=== PATIENT | female | born 1950 | race Caucasian/White ===

== ENCOUNTER → 2016-12-12 | Outpatient (CLI) | payer BC ==
--- NOTE | 2016-12-12 20:47 | PN ---
DATE OF SERVICE: 12/12/2016 This patient is a 66-year-old lady who has been followed in the sleep center for treatment of obstructive sleep apnea-hypopnea syndrome. Patient continues to use her CPAP equipment every night for the whole night. I checked her CPAP unit. She is using it 30 out of 30 nights. CPAP pressure is 7 cm of water. According to the patient and her family, no snoring while she is using her machine. Her weight has increased from 194 pounds to 215 pounds, but again no snoring, no sleepiness during the day. [place] Sleepiness Scale is 5. MEDICATIONS: 1. Lotrel. 2. Pravastatin. 3. Metformin. 4. Meloxicam. 5. Tramadol. 6. Baby aspirin. PHYSICAL EXAMINATION: Patient in no distress. VITAL SIGNS: BP 120/69, HR 78, RR 16. Height 5 feet 7 inches. Weight 215. BMI 33.6. Neck 16 inches in circumference. Temperature 98.6. Oxygen saturation at room air 97%. HEENT: PERRLA, EOMI. Evaluation of oropharynx showed tongue protrudes midline; extremely low position of soft palate. NECK: Supple. No JVD. Thyroid is not palpable. LUNGS: Clear to percussion and to auscultation. Good air exchange. No wheezing or rhonchi. HEART: S1, S2 regular. No murmurs, gallops or rubs. ABDOMEN: Soft and nontender. Bowel sounds are present. No organomegaly appreciated. EXTREMITIES: No clubbing or cyanosis. LIBRARIAN HEAD: Awake, alert, and oriented x3. Cranial nerves 2 to 7 intact. There is no fasciculation or atrophy noted. No focal deficits observed. IMPRESSION: 1. Obstructive sleep apnea-hypopnea syndrome, under control with CPAP at the pressure of 7 cm of water. Patient demonstrated 100% compliance with treatment, benefitting from treatment. 2. Status post left shoulder replacement. 3. Hypertension. 4. Diabetes mellitus. 5. Hyperlipidemia. 6. Mild obesity; body mass index of 33.6. PLAN: 1. Patient will lose weight. 2. Continue to use CPAP equipment every night. 3. Sleep hygiene with regular time in bed for at least 8 hours. 4. No driving if feeling any sleepiness. 5. Prescription for all necessary CPAP supplies, including mask, tube, filters. Thank you very much for allowing me to participate in the management of your patient. Sincerely, Irwin Doe MD, PhD, FAASM. Diplomat of [place] [employer], Sleep Medicine Board by [place] [employer], [place] [employer]
== END | disposition home or self-care (01) ==
LOC: SLEEP 13:39
PROVIDERS: ATTEND Internal Medicine
DX: G47.33 Obstructive sleep apnea (adult) (pediatric) (principal); I10 Essential (primary) hypertension; E11.9 Type 2 diabetes mellitus without complications; Z79.84 Long term (current) use of oral hypoglycemic drugs; E66.9 Obesity, unspecified; Z68.36 Body mass index [BMI] 36.0-36.9, adult; E78.5 Hyperlipidemia, unspecified; Z79.899 Other long term (current) drug therapy

== ENCOUNTER → 2016-12-12 | Outpatient (CLI) | payer BC | END | disposition home or self-care (01) | LOC: LABPAT 10:48 | PROVIDERS: ATTEND Orthopaedic Surgery | DX: Z01.818 Encounter for other preprocedural examination (principal); M16.11 Unilateral primary osteoarthritis, right hip | CPT/HCPCS: 86850; 86900; 86901; 87070 ==

== ENCOUNTER 2016-12-23 07:40 | Inpatient (IN) | payer BC ==
[2016-12-18 15:15] VITALS: BMI 31.3
--- NOTE | 2016-12-22 17:55 | HP ---
DATE OF ADMISSION: Niharika Cruz a 66-year-old patient seen with symptomatic right hip osteoarthritis. After having treatment options discussed, she elected to proceed with direct anterior right total hip arthroplasty. Consent was obtained. Medical clearance by Dr. Hector Eng. Past medical history is [id number] diabetes, hyperlipidemia, hypertension, osteoarthritis. PAST SURGICAL HISTORY: Carpal tunnel release, right total knee arthroplasty, tonsillectomy, wrist surgery. Daily medications: 1. Aspirin. 2. Lotrel. 3. Metformin. 4. Pravachol. 5. Tramadol. ALLERGIES: CODEINE AND NICKEL. SOCIAL HISTORY: Patient denies current tobacco use. Physical evaluation of the right hip: There is limited range of motion with significant pain, positive hip impingement sign. Straight-leg raise is negative. There is diffuse weakness about the hip girdle. Distal neurovascular exam is intact. Radiographs of the right hip reveal severe osteoarthritis. IMPRESSION: Right hip osteoarthritis. PLAN: Direct anterior right total hip arthroplasty.
[~2016-12-23 07:40] MED LIST: ACETAMINOPHEN TAB 500 MG TAB PO ONE; DEXAMETHASONE SOD PHOSPHATE 10 MG/ML 1 ML VIAL IV ONE; HYDROmorphone 1 MG/ML 1 ML SYRINGE IVP PRN; MELOXICAM 7.5 MG TAB PO ONE; MIDAZOLAM 2 MG/2 ML VIAL IV PRN; ONDANSETRON 4 MG/2 ML VIAL IVP ONE; SCOPOLAMINE 1.5MG/72HR PATCH TRANSDERM ONE; TRANEXAMIC ACID 1,000 MG in SODIUM CHLORIDE 0.9% 100 ML IVPB ONE; ceFAZolin 2 GM in SODIUM CHLORIDE 0.9% 100 ML IVPB ONE
[2016-12-23 08:08] VITALS: RESP 16
[2016-12-23] MEDS ORDERED: LIDOCAINE 1% 20 ML VIAL (10MG/ML) FOR IV START INTRADERMA ONE (08:20)
[2016-12-23 08:23] LABS: Glucose,Whole Blood 138 mg/dL (75-99)
[2016-12-23] MEDS: LACTATED RINGERS 1,000 ML IV SCH ×3 (08:31→14:15)
[2016-12-23] MEDS ORDERED: PROPOFOL 10 MG/ML 20 ML VIAL IV ONE (10:25)
[2016-12-23] MEDS ORDERED: fentaNYL (PF) 50 MCG/ML 2 ML AMP ONE (10:25)
[2016-12-23] MEDS ORDERED: TRANEXAMIC ACID 1,000 MG/10 ML VIAL ONE (10:25)
[2016-12-23] MEDS ORDERED: SODIUM CHLORIDE 0.9% 100 ML BAG ONE (10:25)
[2016-12-23] MEDS ORDERED: MIDAZOLAM 2 MG/2 ML VIAL ONE (10:25)
[2016-12-23] MEDS: ROPIVACAINE 246.25 MG, EPINEPHrine 0.5 MG, KETOROLAC 30 MG, cloNIDine HCL/PF 80 MCG, WA... MISCELLANE ONE ×10 (11:01→12:24)
[2016-12-23] MEDS ORDERED: ceFAZolin 3,000 MG in SODIUM CHLORIDE 0.9% IRRIGATIO 3,000 ML IRRIGATION ONE (11:12)
[2016-12-23] MEDS ORDERED: LACTATED RINGERS 1,000 ML IV ONE (11:21)
[2016-12-23] MEDS ORDERED: HYDROcodone/APAP 7.5-325MG 1 EACH TAB PO PRN (12:28)
[2016-12-23] MEDS ORDERED: hydrOXYzine PAMOATE 25 MG CAP PO PRN (12:28)
[2016-12-23] MEDS ORDERED: HYDROmorphone 1 MG/ML 1 ML SYRINGE IVP PRN ×3 (12:28)
[2016-12-23] MEDS ORDERED: ONDANSETRON 4 MG/2 ML VIAL IVP PRN (12:28)
[2016-12-23] MEDS ORDERED: TEMAZEPAM 15 MG CAP PO PRN (12:28)
[2016-12-23] MEDS ORDERED: NALOXONE 0.4 MG/ML 1 ML VIAL IV PRN (12:28)
--- NOTE | 2016-12-23 12:28 | P.OP ---
Date of Procedure: 12/23/16 Preoperative Diagnosis: Right hip osteoarthritis Postoperative Diagnosis: Right hip osteoarthritis Procedure(s) Performed: Direct anterior right total hip arthroplasty Implants: 1. Depuy Corail size 12 press-fit with collar press-fit femoral component 2. Depuy pinnacle 54 mm press-fit acetabular shell 3. Depuy pinnacle polyethylene acetabular liner 54 mm OD 36 mm ID 4. Biolox ceramic femoral head 36 mm +1.5 Anesthesia: local, spinal Surgeon: Brett Garcia Radiologic Technologist #1: Mason Salazar Estimated Blood Loss (ml): 400 Pathology: other (Femoral head) Condition: stable Disposition: PACU Indications for Procedure: 66-year-old patient seen with symptomatic right hip osteoarthritis. After having treatment options discussed, she elected to proceed with total hip arthroplasty. Operative Findings: See description of procedure Description of Procedure: The patient was taken to the operative suite. Patient underwent a spinal anesthetic by the department of anesthesia. Patient was then transferred to the [place] table. Patient was given preoperative IV antibiotics and TXA. Both lower extremities were placed in standard leg spars. The hip was then prepped and draped in the normal sterile orthopedic fashion. A standard anterior incision was made beginning 3 cm lateral and 1 cm distal to the ASIS extending 10 cm. Dissection was then carried down through the subcutaneous soft tissues down to the fascia overlying the tensor fascia erlin. An incision was now made through the fascia. Careful dissection was taken down exposing the tensor fascia erlin muscle. A Cobra retractor was now placed along the medial femoral neck and a second one along the lateral femoral neck. The venous circumflex vessels were now identified, cauterized and clipped. We identified the anterior hip capsule. An incision was made through the hip capsule along the lateral border. Tag sutures were then placed along the anterior capsule and lateral capsule. We then performed a capsulotomy. Retractors were now placed around the femoral neck itself. A Cobra retractor was now placed along the anterior acetabulum. Good exposure was now noted of the femoral head/neck complex. Residual labrum was debrided out. We placed the extremity into 3 turns of fine traction. We were then able to introduce a skid in between the femoral head and acetabulum. A placed a awl into the femoral head. We took 2 turns of traction off the extremity. Rotation was now released. The femoral head was then dislocated without difficulty. Additional releasing was performed of the capsule. The head was then reduced. All traction was released. A femoral neck cut was now made with a sagittal saw. It was completed with an osteotome at the lateral neck area. The femoral head was now removed without difficulty. There was advanced osteoarthritis of both the femoral head and acetabulum. The extremity was now rotated to 60 of external rotation. It was locked in position. Residual labrum was now debrided out. Serial reaming was performed of the acetabulum. Once we reached the appropriate size and a trial was position and fit nicely. The appropriate size was now chosen opened and made available. The wound was irrigated with pulse lavage mechanical irrigation. It was introduced into the acetabulum without difficulty. The C-arm/fluoroscopy was now brought into the operative field. We made sure we had a true AP pelvic view. We now under direct C-arm/ fluoroscopy introduced into the acetabular component with appropriate version and inclination. It was well seated and stable. The C-arm was pulled back. An appropriate liner was introduced and clicked into position. It was felt to be stable. At this point retractors were removed. The extremity was now placed into 125 external rotation with no traction. The leg was now dropped to the ground and adducted. Appropriate retractors were now positioned along the proximal femur. We also placed our femoral look into position. Additional capsular releasing was performed to gain access to the proximal femur. We now used a box osteotome. A canal finder was now utilized. Serial broaching was now performed until we reached the appropriate size with good overall rotational stability. Appropriate calcar planing was performed. A trial head/ neck was placed into position. The hip was now reduced. The C-arm/fluoroscopy was brought back into the operative field. A spot film was obtained of the nonoperative hip. A spot film was obtained of the trial components. Overlays were performed, we noted good overall alignment and positioning for determining leg length. The C-arm/fluoroscopy was pulled back. Retractors were repositioned and the hip was dislocated. The leg was again taken down to the ground and adducted. Appropriate retractors were repositioned as well as the femoral hook. All trial components were removed. The femoral implant was opened along with the femoral head. The wound was irrigated with pulse lavage mechanical irrigation. The deep soft tissues were infiltrated local analgesic. The femoral implant was introduced with good purchase and fixation noted. The femoral head was introduced with good positioning and fixation noted. Retractors were now removed. The hip was now reduced. There appeared be good positioning of the hip. As was confirmed via fluoroscopy and a spot film was obtained to document that. The second gram of TXA was given. Bipolar cautery had been utilized intermittently through the procedure for hemostasis. The wound was irrigated copiously with pulse lavage mechanical irrigation. The superficial soft tissues were infiltrated local analgesic. The fascia was repaired with Vicryl suture. The subcutaneous soft tissues were repaired in layers with Vicryl suture. The skin was approximated with pernio/Dermabond. Sterile dressings were applied. Patient was then awakened, transferred to a bed and taken to recovery in stable condition. Davi RUTLEDGE assisted with the procedure.
--- NOTE | 2016-12-23 12:34 | FL ---
Fluoroscopy HISTORY: Hip replacement 13 seconds fluoroscopy time supplied to the referring clinician. 1 intraoperative C-arm image docume nts the procedure. See dictated report from orthopedic surgery.
--- NOTE | 2016-12-23 12:35 | XR ---
Limited right hip HISTORY: Right hip placement Intraoperative C-arm image documents the procedure
[2016-12-23 13:12] LABS: Glucose,Whole Blood 151 mg/dL (75-99)
[2016-12-23] MEDS: traMADol 50 MG TAB PO SCH ×3 (14:15→23:29)
[2016-12-23] MEDS: INSULIN LISPRO (humaLOG) 300 UNIT/3 ML VIAL SQ SCH ×2 (18:05→21:27)
[2016-12-23 18:06] LABS: Glucose,Whole Blood 178 mg/dL (75-99)
[2016-12-23] MEDS: ceFAZolin 2 GM in SODIUM CHLORIDE 0.9% 100 ML IVPB SCH ×2 (18:06→23:34)
[2016-12-23] MEDS: HYDROcodone/APAP 7.5-325MG 1 EACH TAB PO PRN (20:26)
[2016-12-23] MEDS ORDERED: PRAVASTATIN SODIUM 20 MG TAB PO SCH (21:00)
[2016-12-23] MEDS ORDERED: SENNOSIDES-DOCUSATE SODIUM 1 EACH TAB PO SCH (21:00)
[2016-12-23 21:28] LABS: Glucose,Whole Blood 123 mg/dL (75-99)
--- NOTE | 2016-12-23 22:09 | CONS ---
DATE OF CONSULTATION: 12/22/2016. REASON FOR CONSULTATION: Medical management requested by Dr. Garcia. CONSULTATION: This is a pleasant 66 -year-old female patient who has undergone a right total hip arthroplasty. Postoperative pain is controlled. No nausea, vomiting. Chronic stable medical conditions include diabetes, hypertension, hyperlipidemia, silent IN, arthritis in other joints, sleep apnea, uses CPAP machine. The patient sitting on bed, comfortable. REVIEW OF SYSTEMS: CONSTITUTIONAL: Tired. HEENT: None. RESPIRATORY: None. CARDIOVASCULAR: None. GASTROINTESTINAL: None. GENITOURINARY: None. MUSCULOSKELETAL: Arthritic in multiple joints. Dermatological: None. HEMATOLOGICAL: None. LYMPHATIC: None. PSYCHIATRY: None. NEUROLOGICAL: None. PAST HISTORY: Diabetes mellitus, type II, hypertension, hyperlipidemia, silent IN, osteoarthritis, obstructive sleep apnea, uses CPAP machine. PAST SURGICAL HISTORY: Cardiac catheterization, joint replacement, tonsillectomy, right total knee and bilateral feet surgery, carpal tunnel bilateral, lump removed from left wrist, right hip arthroscopy. SOCIAL HISTORY: Smoked 1 to 3 packs a day for 12 years.; Stopped in 1978. . Family history of coronary disease, hypertension. HOME MEDICATIONS: 1. Ultram ( ) q.4 p.r.n. 2. Glucophage 500 mg p.o. daily. 3. Lotrel 1 tablet p.o. daily. 4. Pravachol 20 mg q.h.s. 5. Fish oil 1000 mg capsule p.o. daily. 6. Multivitamin half tablet p.o. b.i.d. 7. Mobic 7.5 p.o. daily. 8. Vitamin D3 2000 units Friday, Friday and Friday, 4000 units Friday, and Friday. 9. Aspirin 81 mg p.o. daily. ALLERGIES: CODEINE AND NICKEL. On examination, temperature 98.3, pulse 75, respiration 16, blood pressure 105/72. Pulse ox 96% on oxygen. GENERAL APPEARANCE: Well built, BMI of 31.3, lying in bed, comfortable, awake. EYES: Pupils equal. Conjunctivae normal. HEENT: Oral cavity normal. NECK: JVD not raised. Mass not palpable. RESPIRATORY: Effort normal. LUNGS: Fair air entry. CARDIOVASCULAR: First and second sounds normal. No edema. ABDOMEN: Soft, nontender. Liver and spleen not palpable. LYMPHATIC: No lymph nodes palpable in the neck or axillae. PSYCHIATRY: Alert and oriented x3. Mood and affect normal. NEUROLOGICAL: Pupils equal. Cranial nerves grossly intact. Power and sensation grossly intact. EXTREMITIES: Right hip in a dressing. INVESTIGATIONS: Accu-Cheks are noted. ASSESSMENT: 1. Right total hip arthroplasty. 2. Primary osteoarthritis of multiple joints, bilateral. 3. Type 2 diabetes mellitus, on oral hypoglycemics. 4. Essential hypertension. 5. Hyperlipidemia. 6. Coronary artery disease with prior history of silent myocardial infarction. 7. Obstructive sleep apnea, uses CPAP machine. 8. Obesity, body mass index of 31.3. PLAN: Patient's home medications will be resumed. DVT prophylaxis, been getting Lovenox per Dr. Garcia. Pain is controlled. Accu-Cheks will be followed. The patient uses CPAP machine. Patient to follow up with Dr. Eng upon discharge. Thank you, Dr. Garcia.
[2016-12-24] MEDS: LACTATED RINGERS 1,000 ML IV SCH ×3 (00:30→15:58)
[2016-12-24] MEDS: HYDROcodone/APAP 7.5-325MG 1 EACH TAB PO PRN ×2 (03:52→09:02)
[2016-12-24 07:19] LABS: Glucose,Whole Blood 108 mg/dL (75-99)
[2016-12-24 07:28] VITALS: BP 114/74; PULSE 69; TEMP 97.6
[2016-12-24 07:42] LABS: Basophils % (A) 0 %; CHCM 32.1; Eosinophils % (A) 0 %; HCT 34.3 % (34.0-46.0); HDW 2.02; HGB 11.3 gm/dL (11.4-16.0); Luc # (Auto) 0.16; Luc % (Auto) 2; Lymphocytes # (A) 1.5 k/uL (1.0-4.8); Lymphocytes % (A) 22 %; MCH 31.9 pg (25.0-35.0); MCHC 32.9 g/dL (31.0-37.0); MCV 96.9 fL (80.0-100.0); Mean Platelet Volume 7.1; Monocytes # (A) 0.7 k/uL (0-1.0); Monocytes % (A) 9 %; Neutrophils # (A) 4.7 k/uL (1.3-7.7); Neutrophils % (A) 66 %; RBC 3.53 m/uL (3.80-5.40); RDW 12.9 % (11.5-15.5); WBC 7.1 k/uL (3.8-10.6)
[2016-12-24] MEDS: INSULIN LISPRO (humaLOG) 300 UNIT/3 ML VIAL SQ SCH ×2 (08:24→14:32)
[2016-12-24] MEDS ORDERED: MELOXICAM 7.5 MG TAB PO SCH (09:00)
[2016-12-24] MEDS ORDERED: ASPIRIN 81 MG CHEW PO SCH (09:00)
[2016-12-24] MEDS ORDERED: FAMOTIDINE 20 MG TAB PO SCH (09:00)
[2016-12-24] MEDS ORDERED: amLODIPine 5 MG TAB PO SCH (09:00)
[2016-12-24] MEDS ORDERED: metFORMIN 500 MG TAB PO SCH (09:00)
[2016-12-24] MEDS ORDERED: LISINOPRIL 20 MG TAB PO SCH (09:00)
[2016-12-24] MEDS ORDERED: ENOXAPARIN 40 MG/0.4 ML SYRINGE SQ SCH (09:00)
[2016-12-24] MEDS: traMADol 50 MG TAB PO SCH ×2 (09:02→15:59)
[2016-12-24 11:08] LABS: Hemoglobin A1C 6.4 % (4.2-6.1)
[2016-12-24 11:32] LABS: Glucose,Whole Blood 118 mg/dL (75-99)
[2016-12-24] MEDS ORDERED: MULTIVITAMINS, THERA 1 EACH TAB PO SCH (12:00)
--- NOTE | 2016-12-24 12:04 | P.PN ---
Subjective Principal diagnosis: Status post right total hip arthroplasty Patient is seen today resting in her hospital chair, she appears comfortable. Her pain is well-controlled. She's ambulated well with therapy. She denies any headaches, lightheadedness, chest pain, shortness of breath, fever or chills. Objective - Vital Signs Vital signs: Vital Signs Temp 97.6 F 12/24/16 07:27 Pulse 69 12/24/16 07:27 Resp 16 12/24/16 07:27 BP 114/74 12/24/16 07:27 Pulse Ox 99 12/24/16 07:27 Intake & Output 12/23/16 12/24/16 12/24/16 18:59 06:59 18:59 Intake Total 5280 880 Output Total 675 900 350 Balance 4605 -20 -350 Weight 96.162 kg Intake: IV 4800 880 Lactated Ringers 1,000 ml 880 @ 80 mls/hr IV .[id number] Rx#:[id number] Oral 480 Output: Urine 275 900 350 Uretheral ([place]) 900 200 Estimated Blood Loss 400 Other: Voiding Method Indwelling Catheter Indwelling Catheter # Voids 1 - Exam Right lower extremity: Incisions clean, dry, and intact. Minimal soft tissue swelling and ecchymosis present in the hip region. Calf is soft, no tenderness with palpation. Plantar flexion, dorsiflexion, EHL, FHL are intact. Sensory exam to light touch throughout the extremities intact, cap refills less than 3 seconds. - Labs CBC & Chem 7: 12/24/16 06:44 Labs: Abnormal Lab Results - Last 24 Hours (Table) 12/23/16 12/23/16 12/23/16 Range/Units 13:09 18:04 21:22 RBC (3.80-5.40) m/uL Hgb (11.4-16.0) gm/dL POC Glucose (mg/dL) 151 H 178 H 123 H (75-99) mg/dL Hemoglobin A1c (4.2-6.1) % 12/24/16 12/24/16 12/24/16 Range/Units 06:44 06:44 07:16 RBC 3.53 L (3.80-5.40) m/uL Hgb 11.3 L (11.4-16.0) gm/dL POC Glucose (mg/dL) 108 H (75-99) mg/dL Hemoglobin A1c 6.4 H (4.2-6.1) % 12/24/16 Range/Units 11:29 RBC (3.80-5.40) m/uL Hgb (11.4-16.0) gm/dL POC Glucose (mg/dL) 118 H (75-99) mg/dL Hemoglobin A1c (4.2-6.1) % Assessment and Plan Plan: Assessment: 1. Postop day #1 status post right total hip arthroplasty Plan: 1. Pain control, continue use of oral medications 2. Wound care instructions were discussed with the patient 3. GI and DVT prophylaxis, patient will be discharged home on aspirin 325 mg twice a day 4. Medical recommendations 5. Home physical therapy and nursing after discharge 6. Discharge planning: Patient will be discharged home today Time with Patient: Less than 30
--- NOTE | 2016-12-24 12:07 | P.DS ---
Providers Date of admission: 12/23/16 07:40 Expected date of discharge: 12/24/16 Attending physician: Brett Garcia Consults: 12/23/16 12:28 Consult Physician Routine Consulting Provider: Rick Marin Consult Reason/Comments: Medical management Do you want consulting provider notified?: Yes Primary care physician: Portia Thierry [facility] Course: Date of admission: 12/23/2016 Date of discharge: 12/24/2016 Admission diagnosis: Status post right total hip arthroplasty Discharge diagnosis: Same Attending physician: Dr. Garcia Surgical procedures: Right total hip arthroplasty Brief history: Patient is a 66-year-old female with a history of progressive primary right hip osteoarthritis. At this point patient has failed conservative treatment measures and has opted to proceed with a elective right total hip arthroplasty. Hospital course: Details of patient's surgery can be found in operative report. Patient tolerated the procedure well and was subsequently transported to orthopedic floor. Patient's orthopeidc and medical care was provided daily. Patient had daily laboratory tests performed for evaluation of overall blood counts. Patient had daily physical therapy to include strengthening range of motion as well as education with walker ambulation. Patient was treated with Lovenox for their postoperative DVT prophylaxis during their inpatient stay. Patient was noted to have a relatively uneventful postoperative course. Patient reported satisfactory pain control with oral pain medications by postoperative day 0. Patient showed satisfactory progress with physical therapy. Patient moved steadily through the program and had no difficulty meeting the goals by postoperative day 1. Given patient's otherwise satisfactory course and having met physical therapy goals, plan is to discharge patient home on postoperative day 1. Discharge condition/disposition: Patient will be discharged home in stable condition. Discharge medications: Instructions are given on resumption of patient's normal daily medications per primary care recommendation, in addition patient will be prescribed [place] 7.5 mg/325 mg, Pepcid 20 mg, Colace 100 mg, aspirin 325 mg. Discharge instructions: 1. Wound care and infection precautions, keep incision dry and covered while showering, no lotions, creams, moisturizers. No soaking, tubs, pools, hottubs. Do not scrub over the incision. 2. Weight-bear as tolerated with walker / cane until follow-up. 3. Ice and elevate when necessary. Do not exceed 20 minutes per hour with ice pack. 4. Utilize compression sleeve until seen at first follow up appointment. 5. Visiting nursing care. 6. Home physical therapy. 7. Pain meds and anticoagulants per prescription. 8. Pain medication has potential to cause constipation. Increase oral fluid and fiber intake. Contact primary care provider if you have not had a bowel movement within 48 hours after discharge 9. No anti-inflammatory medication until discussed at first post operative visit, this including Motrin, Aleve, Mobic, Diclofenac. 10. Follow up in office at 2 weeks postop with Davi Salazar PA-C 11. Follow up with your primary care doctor 7-10 days after discharge. 12. Contact [facility] with any questions, . Procedures: Right total hip arthroplasty Patient Condition at Discharge: Good Plan - Discharge Summary New Discharge Prescriptions: New Aspirin 325 mg PO BID #60 tab Docusate [Colace] 100 mg PO DAILY #30 capsule Famotidine [Pepcid] 20 mg PO DAILY #30 tablet HYDROcodone/APAP 7.5-325MG [[place] 7.5] 1 - 2 each PO Q6HR PRN #60 tab PRN Reason: Pain No Action Cholecalciferol [Vitamin D3] 4,000 unit PO SUTUTHSA Cholecalciferol [Vitamin D3] 2,000 unit PO MOWEFR traMADol HCL [Ultram] 50 - 100 mg PO Q4HR PRN PRN Reason: Pain Multivitamins, Thera [Multivitamin (formulary)] 0.5 tab PO BID metFORMIN HCL [Glucophage] 500 mg PO DAILY Meloxicam [Mobic] 7.5 mg PO DAILY amLODIPine BESYLATE/BENAZEPRIL [Lotrel 5-20 mg Capsule] 1 tab PO DAILY Pravastatin Sodium [Pravachol] 20 mg PO HS Totz-3 Fatty Acids/Fish Oil [Fish Oil 1,000 mg Capsule] 1 cap PO DAILY Discharge Medication List Cholecalciferol [Vitamin D3] 2,000 unit PO MOWEFR 12/26/14 [History] Cholecalciferol [Vitamin D3] 4,000 unit PO SUTUTHSA 12/26/14 [History] Meloxicam [Mobic] 7.5 mg PO DAILY 12/26/14 [History] Multivitamins, Thera [Multivitamin (formulary)] 0.5 tab PO BID 12/26/14 [History ] Pravastatin Sodium [Pravachol] 20 mg PO HS 12/26/14 [History] amLODIPine BESYLATE/BENAZEPRIL [Lotrel 5-20 mg Capsule] 1 tab PO DAILY 12/26/14 [History] metFORMIN HCL [Glucophage] 500 mg PO DAILY 12/26/14 [History] traMADol HCL [Ultram] 50 - 100 mg PO Q4HR PRN 12/26/14 [History] Totz-3 Fatty Acids/Fish Oil [Fish Oil 1,000 mg Capsule] 1 cap PO DAILY [History] Aspirin 325 mg PO BID #60 tab 12/24/16 [Rx] Docusate [Colace] 100 mg PO DAILY #30 capsule 12/24/16 [Rx] Famotidine [Pepcid] 20 mg PO DAILY #30 tablet 12/24/16 [Rx] HYDROcodone/APAP 7.5-325MG [[place]anyon 7.5] 1 - 2 each PO Q6HR PRN #60 tab 12/24/16 [ Rx] Follow up Appointment(s)/Referral(s): Mason Salazar PAC [PHYSICIAN CURBER] - 2 Weeks Activity/Diet/Wound Care/Special Instructions: Orthopedic Discharge Instructions: 1. Wound care and infection precautions, keep incision dry and covered while showering, no lotions, creams, moisturizers. No soaking, pools, hot tubs. Do not scrub over incision. 2. Weight-bear as tolerated with walker / cane until follow-up. 3. Ice and elevate when necessary. Do not exceed 20 minutes per hour with ice pack. 4. Utilize compression sleeve until seen at first follow up appointment. 5. Visiting nursing care. 6. Home physical therapy. 7. Pain meds and anticoagulants per prescription. 8. Pain medication has potential to cause constipation. Increase oral fluid and fiber intake. Contact primary care provider if you have not had a bowel movement within 48 hours after discharge. 9. No anti-inflammatory medication until discussed at first post operative visit, this including Motrin, Aleve, Mobic, Diclofenac. 10. Follow up in office at 2 weeks postop with Davi Salazar PA-C 11. Follow up with your primary care doctor 7-10 days after discharge. 12. Contact [facility] with any questions, . Discharge Disposition: HOME WITH HOME HEALTH SERVICES
--- NOTE | 2016-12-24 16:55 | PN ---
DATE OF SERVICE: 12/24/2016 PRESENTING COMPLAINT: Right hip surgery, INTERVAL HISTORY: Patient is status post right hip surgery, doing well. Pain is controlled. No nausea, vomiting, tolerating a diet. Did work with therapy. Review of systems done for constitutional, cardiovascular, GI, pulmonary, musculoskeletal; relevant findings as above. No current medications are reviewed. On examination, temperature 97.6, pulse 59, respiratory rate 16, blood pressure 104/74, pulse ox 99% on room air. GENERAL APPEARANCE: Sitting up, comfortable. EYES: Pupils equal. Conjunctivae normal. NECK: JVD not raised. Mass not palpable. RESPIRATORY: Effort normal. LUNGS: Clear. CARDIOVASCULAR: First and second sounds normal. No edema. ABDOMEN: Soft, nontender. Liver and spleen not palpable. PSYCHIATRY: Alert and oriented x3. Mood and affect normal. INVESTIGATIONS: White count 7.1, hemoglobin 11.3. Accu-Cheks are noted. ASSESSMENT: 1. Right total hip arthroplasty. 2. Primary osteoarthritis in multiple joints, bilateral. 3. Diabetes mellitus, type 2, on oral hypoglycemic. 4. Essential hypertension. 5. Hyperlipidemia. 6. Coronary artery disease with prior history of silent myocardial infarction. 7. Obstructive sleep apnea, uses CPAP machine. 8. Obesity, body mass index 31.3. PLAN: Continue current medication and treatment plan. Care was discussed with the patient. Doing well.
== END 2016-12-24 15:50 | disposition home health service (06) | DRG 470 ==
LOC: 2ORMAIN 07:40 → 3SUR 12:42
PROVIDERS: ADMIT Orthopaedic Surgery; ATTEND Orthopaedic Surgery
PROC: 0SR904A Replacement of Right Hip Joint with Ceramic on Polyethylene Synthetic Substitute, Uncemented, Open Approach (ICD-10-PCS; principal; 2016-12-23 10:15)
DX: M16.11 Unilateral primary osteoarthritis, right hip (principal); E66.9 Obesity, unspecified; I10 Essential (primary) hypertension; E11.9 Type 2 diabetes mellitus without complications; E78.5 Hyperlipidemia, unspecified; G47.33 Obstructive sleep apnea (adult) (pediatric); I25.10 Atherosclerotic heart disease of native coronary artery without angina pectoris; I25.2 Old myocardial infarction; Z68.31 Body mass index [BMI] 31.0-31.9, adult; Z79.82 Long term (current) use of aspirin; Z79.84 Long term (current) use of oral hypoglycemic drugs; Z79.899 Other long term (current) drug therapy; Z82.49 Family history of ischemic heart disease and other diseases of the circulatory system; Z87.891 Personal history of nicotine dependence; Z96.651 Presence of right artificial knee joint; Z88.5 Allergy status to narcotic agent
CPT/HCPCS: 73501; 83036; 85025; 86850; 86900; 86901; 88300

== ENCOUNTER → 2017-02-20 | Outpatient (CLI) | payer SELFPAY ==
--- NOTE | 2017-02-20 14:53 | PN ---
DATE OF SERVICE: 02/20/2017 A 66-year-old lady who has been followed in the sleep center for treatment of obstructive sleep apnea-hypopnea syndrome. Patient continued to use her CPAP equipment successfully every night for the whole night without any problem related to the mask or the machine. I checked patient's CPAP unit, CPAP pressure is 7 cm of water. Patient using it 100% of the time. [place] sleepiness scale today is 7. According to the patient and family, no snoring while she is using her machine. She sleeps well. MEDICATIONS: Lotrel, pravastatin, metformin, meloxicam, Tramadol, baby aspirin. During physical exam, patient in no distress. BP 126/65, HR 75, RR 16, height 5, 7, weight 215, BMI 33.6, temperature 98.2, oxygen saturation at room air 99%. Neck circumference is 16 cm. OROPHARYNX: Extremely low position of soft palate. ABDOMEN: Slight obese. NECK: Supple, No JVD. Thyroid is not palpable. LUNGS: Clear to percussion and to auscultation. Good air exchange. No wheezing or rhonchi. HEART: S1, s2 regular. No murmurs, gallops or rubs. EXTREMITIES: No clubbing or cyanosis. RECOVERY SPECIALIST: Awake, alert, and oriented x3. Cranial nerves 2 to 7 intact. There is no fasciculation or atrophy noted. No focal deficits observed. IMPRESSION: 1. Obstructive sleep apnea-hypopnea syndrome under control with CPAP. Patient demonstrated 100% compliance with treatment, benefitting from treatment. 2. Hypertension. 3. Diabetes mellitus. 4. Status post left shoulder replacement. 5. Hyperlipidemia. 6. Mild obesity. PLAN: 1. Continue treatment with CPAP every night for the whole night. 2. Prescription for all necessary CPAP supplies including mask, tube, filters. 3. Watching and losing weight. 4. Sleep hygiene with regular time in bed for at least 8 hours. 5. No driving if feeling sleepiness. 6. Follow up visit in 1 year or earlier if patient has any problems. Thank you very much for allowing me to participate in the management of your patient. Sincerely, Irwin Doe MD, PhD, FAASM. Diplomat of [place] [employer], Sleep Medicine Board by [place] [employer] [employer] Manager Validation of [facility] [place] [facility]
== END ==
LOC: SLEEP 10:58
PROVIDERS: ATTEND Internal Medicine
DX: G47.33 Obstructive sleep apnea (adult) (pediatric) (principal); E11.9 Type 2 diabetes mellitus without complications; I10 Essential (primary) hypertension; E78.5 Hyperlipidemia, unspecified; E66.9 Obesity, unspecified; Z96.612 Presence of left artificial shoulder joint; Z79.899 Other long term (current) drug therapy; Z79.82 Long term (current) use of aspirin

== ENCOUNTER → 2018-01-09 | Outpatient (CLI) | payer MEDICARE ==
--- NOTE | 2018-01-10 10:39 | MR ---
EXAMINATION TYPE: MR cervical spine wo con DATE OF EXAM: 01/09/2018 COMPARISON: NONE HISTORY: Radiculopathy, cervical region TECHNIQUE: Multiplanar, multisequence images of the cervical spine were acquired. C2-C3: Mild right-sided foraminal encroachment is present due to lateral extension of endplate and di sc, no significant central stenosis or disc herniation. C3-C4: Broad-based posterior disc bulge causes mild anterior mass effect on the thecal sac. Lateral e xtension endplate disc complex causes some left-sided foraminal encroachment. No central stenosis. C4-C5: There is moderate to severe central canal stenosis due to posterior extension of endplate disc complex, lateral extension causes bilateral foraminal encroachment. C5-C6: There is moderate to severe central canal stenosis due to posterior extension of endplate disc complex, bilateral foraminal encroachment present due to lateral extension of endplate disc complex. C6-C7: No significant central stenosis. No evident disc herniation. Lateral extension endplate disc c omplex causes some mild right-sided foraminal encroachment greater than left. C7-T1: No evidence for degenerative disc disease. No disc bulge/herniation or protrusion. No Canal stenosis. Foramina are patent bilaterally. Cervical segments are intact. There is retrolisthesis grade 1 C4-5, C5-6 anterolisthesis grade 1 C3- 4. There is multilevel spondylosis with endplate discogenic marrow signal change, loss of disc heigh t signal is greatest at C4-5 and C5-6. Cervical spinal cord is of normal signal. Craniovertebral valery ction relationships are within normal limits. IMPRESSION: Degenerative disc disease, multilevel foraminal encroachment, spinal stenosis as described.
== END | disposition home or self-care (01) ==
LOC: RADMRIMAIN 06:04
PROVIDERS: ATTEND Internal Medicine Rheumatology
DX: M48.02 Spinal stenosis, cervical region (principal); M50.10 Cervical disc disorder with radiculopathy, unspecified cervical region
CPT/HCPCS: 72141

== ENCOUNTER → 2018-02-12 | Outpatient (CLI) | payer MEDICARE ==
--- NOTE | 2018-02-12 11:52 | PN ---
PROGRESS NOTE DATE OF SERVICE: 02/12/2018 A 67-year-old lady who has been followed in the Sleep Center for treatment of obstructive sleep apnea-hypopnea syndrome. Patient continued to use her CPAP equipment every night without any problems/ According to her family. no snoring with the machine. [place] Sleepiness Scale today is 4, which is normal range. I checked her CPAP unit. CPAP pressure is 7 cm of water. Usage is 100% of the time. Average time of usage 7.5 hours. MEDICATION: Hydrocortisone, Lotrel, pravastatin, metformin meloxicam, tramadol, baby aspirin. PHYSICAL EXAM: Patient in no distress. BP 100/64, HR 78, RR 18, height 5. 7 inches, weight 223, BMI 34.9, temperature 99.3, oxygen saturation at room air 95%. OROPHARYNX: Extremely low position of soft palate. Neck Supple, no JVD. Thyroid is not palpable. LUNGS Clear to percussion and to auscultation. Good air exchange. No wheezing or rhonchi. HEART S1, S2 regular. No murmurs, gallops, or rubs. ABDOMEN Soft and nontender. Bowel sounds are present. No organomegaly appreciated. EXTREMITIES No clubbing or cyanosis. DIESEL POWER MECHANIC Awake, alert, and oriented X3. Cranial nerves 2 to 7 intact. There is no fasciculation or atrophy. noted. No focal deficits observed. IMPRESSION: 1. Obstructive sleep apnea-hypopnea syndrome on control with CPAP. Patient demonstrated 100% compliance with treatment, benefitting from treatment. 2. Arthritis of neck and hands. 3. Hypertension. 4. Diabetes mellitus. 5. Status post left shoulder replacement. 6. Hyperlipidemia. 7. Mild obesity, patient increased her weight about 8 pounds since previous visit. PLAN: 1. Continue treatment with CPAP every night for the whole night. 2. Losing weight. 3. Sleep hygiene with regular time in bed for at least 8 hours. 4. No driving if feeling any sleepiness. 5. Prescription for all necessary CPAP supplies including mask, tube, filters. 6. Followup visit in 1 year or earlier if patient has any problems. Thank you very much for allowing me to participate in the management of your patient. Sincerely, Irwin Doe MD, PhD, FAASM Diplomat of [place] [employer] [place] [employer] Ramp Lead of [facility] [place] MMODL / IJN: [id number] /
== END | disposition home or self-care (01) ==
LOC: SLEEP 10:32
PROVIDERS: ATTEND Internal Medicine
DX: G47.33 Obstructive sleep apnea (adult) (pediatric) (principal); I10 Essential (primary) hypertension; E11.9 Type 2 diabetes mellitus without complications; E78.5 Hyperlipidemia, unspecified; E66.9 Obesity, unspecified; M13.89 Other specified arthritis, multiple sites; Z68.34 Body mass index [BMI] 34.0-34.9, adult; Z96.612 Presence of left artificial shoulder joint; Z79.82 Long term (current) use of aspirin; Z79.891 Long term (current) use of opiate analgesic; Z79.84 Long term (current) use of oral hypoglycemic drugs; Z79.899 Other long term (current) drug therapy; Z79.51 Long term (current) use of inhaled steroids; Z79.1 Long term (current) use of non-steroidal anti-inflammatories (NSAID); Z99.89 Dependence on other enabling machines and devices

== ENCOUNTER → 2019-07-16 | Outpatient (CLI) | payer MEDICARE | END | disposition home or self-care (01) | LOC: LABPAT 13:38 | PROVIDERS: ATTEND Orthopaedic Surgery | DX: Z01.812 Encounter for preprocedural laboratory examination (principal) | CPT/HCPCS: 87070 ==

== ENCOUNTER 2019-08-03 06:27 | Inpatient (IN) | payer MEDICARE ==
[2019-07-27 14:36] VITALS: BMI 33.6
--- NOTE | 2019-07-31 10:34 | HP ---
HISTORY AND PHYSICAL CHIEF COMPLAINT: Right shoulder pain. HISTORY OF PRESENT ILLNESS: The patient is a 69-year-old, right-hand dominant, retired female who presents with progressive right shoulder pain for the past several years. It has worsened recently. She is having pain with any attempted overhead use and at night. She notes it significantly limits her. She has tried medications in addition to without much. PAST MEDICAL HISTORY: Type 2 diabetes, hypercholesterolemia, hypertension, and arthritis. PAST SURGICAL HISTORY: Significant for right total knee arthroplasty, right total hip arthroplasty, left total shoulder arthroplasty, previous wrist surgery, tonsillectomy, bilateral carpal tunnel release, and previous foot surgery. CURRENT MEDICATIONS: 1. Aspirin. 2. Lotrel. 3. Metformin. 4. Pravachol. 5. Meloxicam. 6. Tramadol. 7. Hydrochloroquine. ALLERGIES: She notes allergies to NICKEL and CODEINE. FAMILY HISTORY: Significant for diabetes and heart disease. SOCIAL HISTORY: Negative for current tobacco or alcohol use. REVIEW OF SYSTEMS: Sixteen-point review of systems otherwise reviewed and noncontributory. PHYSICAL EXAMINATION: On examination, the patient is approximately 5 feet 10 inches, 218 pounds of endomorphic habitus. HEENT exam is nonfocal. Neck is supple. On examination of the right shoulder, she is tender about the anterior shoulder joint and subacromial space. She has moderate subacromial crepitus. Active range of motion of the right shoulder forward elevation 75 degrees, external rotation with arm at side 20 degrees, internal rotation to the buttock. Motor strength is 5/5 for external rotation. Impingement test and Neer tests are positive. Her distal neurovascular exam otherwise appears intact in the right upper extremity. X-rays to include AP, outlet and axillary lateral views of the right shoulder show severe glenohumeral joint osteoarthrosis with [id number] changes. The humeral head to acromial distance appears maintained. IMPRESSION: 1. Right severe glenohumeral joint osteoarthrosis. 2. Hypertension. 3. Hyperlipidemia. 4. Fcg-yxtsocg-kbcdygomb diabetes. RECOMMENDATIONS: I talked to the patient at length regarding her condition and treatment options. At this point, she is having significant symptoms related to her osteoarthrosis despite conservative measures. After thorough discussion, she opts to proceed with surgery. We will plan to proceed with right total shoulder arthroplasty. Risks and benefits were discussed at length in layman's terms. MMODL / IJN: [id number] /
[~2019-08-03 06:27] MED LIST changes: +HYDROmorphone 0.5 MG/0.5 ML SYRINGE IVP PRN; -HYDROmorphone 1 MG/ML 1 ML SYRINGE IVP PRN; +LIDOCAINE 1% 20 ML VIAL (10MG/ML) FOR IV START INTRADERMA PRN; -ceFAZolin 2 GM in SODIUM CHLORIDE 0.9% 100 ML IVPB ONE
[2019-08-03] MEDS: LACTATED RINGERS 1,000 ML IV SCH (07:09)
[2019-08-03 07:13] LABS: Glucose,Whole Blood 149 mg/dL (75-99)
[2019-08-03 07:22] LABS: HCT 45.3 % (34.0-46.0); HGB 14.6 gm/dL (11.4-16.0); MCH 31.1 pg (25.0-35.0); MCHC 32.3 g/dL (31.0-37.0); MCV 96.3 fL (80.0-100.0); Mean Platelet Volume 7.6; Platelet Count 239 k/uL (150-450); RBC 4.71 m/uL (3.80-5.40); RDW 12.3 % (11.5-15.5); WBC 5.3 k/uL (3.8-10.6)
[2019-08-03] MEDS ORDERED: fentaNYL (PF) 50 MCG/ML 2 ML AMP IV ONE (07:28)
[2019-08-03 07:44] LABS: ALT 25 U/L (4-34); AST 38 U/L (14-36); African American GFR (CKD) >90 (>60 ml/min/1.73 sqM); Albumin 4.3 g/dL (3.5-5.0); Alkaline Phosphatase 74 U/L (38-126); Anion Gap 7 mmol/L; Blood Urea Nitrogen 20 mg/dL (7-17); Calcium 9.3 mg/dL (8.4-10.2); Carbon Dioxide 24 mmol/L (22-30); Chloride 107 mmol/L (98-107); Glucose 160 mg/dL (74-99); Non-African American GFR(CKD) >90 (>60 ml/min/1.73 sqM); Sodium 138 mmol/L (137-145); Total Bilirubin 0.7 mg/dL (0.2-1.3); Total Protein 7.3 g/dL (6.3-8.2)
[2019-08-03 07:47] LABS: Potassium 4.7 mmol/L (3.5-5.1)
[2019-08-03] MEDS ORDERED: SUCCINYLCHOLINE CHLORIDE 100 MG/5 ML SYR IV ONE (07:55)
[2019-08-03] MEDS ORDERED: fentaNYL (PF) 50 MCG/ML 2 ML AMP ONE (07:55)
[2019-08-03] MEDS ORDERED: ROCURONIUM BROMIDE 10 MG/ML 10 ML VIAL IV ONE (07:55)
[2019-08-03] MEDS ORDERED: LIDOCAINE 1% INJ 10MG/ML (20 ML MDV) ONE (07:55)
[2019-08-03] MEDS ORDERED: SODIUM CHLORIDE 0.9% 100 ML BAG ONE (07:55)
[2019-08-03] MEDS ORDERED: TRANEXAMIC ACID 1,000 MG/10 ML VIAL ONE (07:55)
[2019-08-03] MEDS ORDERED: GLYCOPYRROLATE 0.2 MG/ML 2 ML VIAL ONE (07:55)
[2019-08-03] MEDS ORDERED: PROPOFOL 10 MG/ML 20 ML VIAL IV ONE (07:55)
[2019-08-03] MEDS ORDERED: NEOSTIGMINE 1 MG/ML 10 ML VIAL ONE (07:55)
[2019-08-03] MEDS ORDERED: MIDAZOLAM 2 MG/2 ML VIAL ONE (07:55)
[2019-08-03] MEDS ORDERED: PHENYLEPHRINE-0.9% NACL SYG 1 MG/10 ML SYRINGE ONE (07:55)
--- NOTE | 2019-08-03 08:30 | P.ANPRN ---
Procedure Note - Anesthesia - Nerve Block Performed Right Interscalene Single Time Out Performed: Yes ([id number]) Date of Procedure: 08/03/19 Procedure Start Time: 07:29 Procedure Stop Time: 07:36 Location of Patient: PreOp Indication: Acute Post-Operative Pain, Requested by Surgeon Specifically requested for management of pain by : Shola Mesa Sedation Type: Sedate with meaningful contact maintained Preparation: Sterile Prep Position: Supine Catheter: None Needle Types: Pajunk Needle Gauge: 20 Ultrasound used to visualize needle placement: Yes Ultrasound used to observe medication spread: Yes Injectate: Other (see comment) (Ropi 0.5% 15cc & Lido 2% with epi 15cc 50/50 mixture) Blood Aspirated: No Pain Paresthesia on Injection Noted: No Resistance on Injection: Normal Image Stored and Saved: Yes Events: Uneventful and Well Tolerated
[2019-08-03] MEDS ORDERED: ceFAZolin 3,000 MG in SODIUM CHLORIDE 0.9% IRRIGATIO 3,000 ML IRRIGATION ONE (08:38)
[2019-08-03] MEDS ORDERED: LACTATED RINGERS 1,000 ML IV ONE (09:29)
[2019-08-03] MEDS ORDERED: HYDROmorphone 0.5 MG/0.5 ML SYRINGE IVP PRN ×2 (09:46)
[2019-08-03] MEDS ORDERED: ONDANSETRON 4 MG/2 ML VIAL IVP PRN (09:46)
[2019-08-03] MEDS ORDERED: SENNOSIDES-DOCUSATE SODIUM 1 EACH TAB PO PRN (09:46)
--- NOTE | 2019-08-03 10:05 | P.OP ---
Date of Procedure: 08/03/19 Preoperative Diagnosis: Right severe glenohumeral joint osteoarthrosis Postoperative Diagnosis: Same Procedure(s) Performed: Right total shoulder arthroplasty Implants: [employer] size 12 press-fit humeral stem with size 12 body, 48 x 21 mm eccentric humeral head, 48 mm central pegged cemented glenoid component. Anesthesia: glenys PADILLA Surgeon: Shola Mesa Poured Concrete Wall Technician #1: Mason Salazar Estimated Blood Loss (ml): 200 Pathology: other (Humeral head) Condition: stable Disposition: PACU Indications for Procedure: The patient's a 69-year-old [id number] female who presents with progressive right shoulder pain secondary to osteoarthrosis despite conservative treatment. A discussion of the risks and benefits of operative intervention versus continued conservative measures was made with patient. She opted to proceed with surgery. Operative risks to include infection, neurovascular injury, fracture, instability, component loosening, possible need for subsequent procedures was discussed. Informed consent was obtained. Operative Findings: As below Description of Procedure: The patient was brought to the operating room, and after induction of general anesthesia was placed in the beachchair position. The bony prominences were appropriately padded. The right upper extremity was prepped and draped in normal fashion. A deltopectoral incision was then made lateral to the coracoid process extending approximately 12 cm. The skin was incised sharply. Subcutaneous tissues were divided bluntly. Electrocautery was used for hemostasis. The deltopectoral interval was identified and the cephalic vein gently retracted laterally with the deltoid. Subdeltoid adhesions were bluntly dissected. A self-retaining retractor was placed. The clavipectoral fascia was opened and the conjoined tendon gently retracted medially. The upper one third of the pectoralis major was released to help facilitate exposure. The biceps was identified and the sheath was opened. The rotator interval was opened. The biceps was tenotomized and allowed to retract distally. The lesser tuberosity osteotomy was performed with a small sagittal saw. This completed with an osteotome. The humeral head was then exposed releasing the capsule off the humeral neck. The shoulder was gently dislocated. A starting hole was made in the head in line with the humeral shaft. The shaft was reamed by hand up to 12 mm. There is good distal chatter. The cutting guide was placed planning on a cut flush with the rotator cuff insertion and 30 of retroversion. The cutting block was pinned in place. The humeral head cut was then made. This measured most appropriately at 48 mm. Residual inferior osteophytes were carefully removed flush with the [place] cortical bone. A posterior glenoid retractor was placed. The glenoid was then exposed releasing the labrum from the 12:00 to 6 o'clock position. Residual labral tissue was removed. The glenoid sized most appropriate 48 mm. A guidewire was then inserted planning on the appropriate version. The glenoid was reamed down to a bleeding bony surface. The central pedicle was drilled. The alignment guide was placed in the peripheral peg holes drilled. The trial size 48 mm glenoid was placed and was fully seated. There was good anterior to posterior and inferior to superior fit. The trial component was removed. Pulsatile lavage was utilized. The bony surface was dried. The peripheral peg holes were then pressurized with cement utilizing a syringe. Excess cement was removed. A central peg glenoid was then placed and was fully seated. This was gently impacted. This was held in place until the cement had sufficiently hardened. Attention was then paid again towards preparing the proximal humerus. The appropriate broach was placed in 30 of retroversion and was fully seated. An eccentric 48 mm by 21 mm humeral head was placed. The shoulder was gently reduced. It was taken through a range of motion. It was felt to be stable in flexion and extension with internal and external rotation. I felt there was adequate worship of soft tissue tension. The shoulder was gently dislocated. The trial components were then removed. A #2 Ethibond was placed laterally for reattachment of the lesser tuberosity. The humeral stem was inserted in 30 of retroversion and was fully seated. There was good rotational stability. The eccentric 48 x 21 mm humeral head was gently impacted. The shoulder was then gently reduced and taken through range of motion and was felt to be stable. Pulsatile lavage was utilized. Lesser tuberosity was reattached utilizing #2 Ethibond suture. The rotator interval was closed with #2 Ethibond suture. She had minimal drainage at this point therefore a deep drain was not placed. The deltopectoral interval was closed with interrupted 2-0 Vicryl sutures. The subcu tissues were reapproximated with interrupted 2-0 Vicryl sutures. The skin was reprepped with 3-0 subcuticular Prolene suture. Steri-Strips were applied. A sterile dressing was applied in addition to a sling. The patient was then awoken from general anesthesia and transferred to recovery room in good condition. Blood loss was estimated at 200 mL. No complications were incurred. Sponge and needle counts were correct at the end the case. Davi RUTLEDGE assisted during the major components of the case to include exposure, bony resection, implantation, and closure.
[2019-08-03 10:33] LABS: Glucose,Whole Blood 175 mg/dL (75-99)
--- NOTE | 2019-08-03 10:46 | XR ---
Right shoulder HISTORY: Status post right shoulder arthroplasty 2 views of the right shoulder Patient is status post right shoulder arthroplasty. There is anatomic alignment. Lucency is present i n the soft tissues. Surgical clip overlies the right scapula, there are overlying leads and artifacts . Bony glenoid shows osteoarthritic change. IMPRESSION: Orthopedic follow-up.
[2019-08-03 12:21] LABS: Glucose,Whole Blood 163 mg/dL (75-99)
[2019-08-03] MEDS: INSULIN ASPART (NovoLOG) 100 UNIT/ML VIAL SQ SCH ×3 (12:39→20:45)
[2019-08-03] MEDS: traMADol 50 MG TAB PO SCH ×3 (12:39→21:02)
[2019-08-03] MEDS: HYDROcodone/APAP 5-325MG 1 EACH TAB PO PRN ×2 (16:12→22:16)
[2019-08-03 17:20] LABS: Glucose,Whole Blood 152 mg/dL (75-99)
[2019-08-03 20:52] LABS: Glucose,Whole Blood 146 mg/dL (75-99)
[2019-08-04] MEDS: HYDROcodone/APAP 5-325MG 1 EACH TAB PO PRN ×2 (05:43→11:13)
[2019-08-04 07:05] LABS: Basophils % (A) 0 %; Eosinophils % (A) 0 %; HCT 39.8 % (34.0-46.0); HGB 12.2 gm/dL (11.4-16.0); Lymphocytes # (A) 1.7 k/uL (1.0-4.8); Lymphocytes % (A) 21 %; MCH 30.3 pg (25.0-35.0); MCHC 30.7 g/dL (31.0-37.0); MCV 98.9 fL (80.0-100.0); Mean Platelet Volume 7.5; Monocytes # (A) 0.7 k/uL (0-1.0); Monocytes % (A) 8 %; Neutrophils # (A) 5.6 k/uL (1.3-7.7); Neutrophils % (A) 69 %; Platelet Count 182 k/uL (150-450); RBC 4.02 m/uL (3.80-5.40); RDW 12.4 % (11.5-15.5); WBC 8.1 k/uL (3.8-10.6)
[2019-08-04 07:21] LABS: Glucose,Whole Blood 140 mg/dL (75-99)
[2019-08-04] MEDS: traMADol 50 MG TAB PO SCH (07:43)
[2019-08-04] MEDS: INSULIN ASPART (NovoLOG) 100 UNIT/ML VIAL SQ SCH (07:44)
[2019-08-04 08:16] VITALS: BP 115/68; PULSE 77; RESP 12; TEMP 98.2
[2019-08-04] MEDS ORDERED: ENOXAPARIN 40 MG/0.4 ML SYRINGE SQ SCH (09:00)
--- NOTE | 2019-08-04 10:19 | P.PN ---
Subjective Progress Note Date: 08/04/19 Principal diagnosis: status post right total shoulder arthroplasty Patient evaluated at bedside, she is resting comfortably. Her pain is controlled at this time. She denies any fevers or chills, shortness of breath or chest pain. She is utilizing the arm sling. Objective - Vital Signs Vital signs: Vital Signs Temp 98.2 F 08/04/19 07:00 Pulse 77 08/04/19 07:00 Resp 12 08/04/19 07:00 BP 115/68 08/04/19 07:00 Pulse Ox 97 08/04/19 07:00 Intake & Output 08/03/19 08/04/19 08/04/19 18:59 06:59 18:59 Intake Total 1251 100 Output Total 700 Balance 551 100 Weight 103.8 kg Intake: IV 1251 Intake, IV Titration 100 Amount Lactated Ringers 1,000 ml 100 @ 0 mls/hr IV .[facility] Rx#:[id number] Output: Urine 500 Estimated Blood Loss 200 Other: Voiding Method Toilet - Exam Right upper extremity: Postoperative bandage was removed, Steri-Strips and suture intact. Minimal soft tissue swelling and ecchymosis present. Sensory exam light touch of the extremities intact. Radial pulses 2+. - Labs CBC & Chem 7: 08/04/19 06:10 08/03/19 07:00 Labs: Abnormal Lab Results - Last 24 Hours (Table) 08/03/19 08/03/19 08/03/19 Range/Units 10:31 12:19 17:19 MCHC (31.0-37.0) g/dL POC Glucose (mg/dL) 175 H 163 H 152 H (75-99) mg/dL 08/03/19 08/04/19 08/04/19 Range/Units 20:41 06:10 07:03 MCHC 30.7 L (31.0-37.0) g/dL POC Glucose (mg/dL) 146 H 140 H (75-99) mg/dL Assessment and Plan Plan: Assessment: Postop day 1 status post right total shoulder arthroplasty Plan: Pain control, oral medication at discharge GI and DVT prophylaxis, aspirin 81 mg twice a day Wound care instructions discussed Use of the sling and icing and elevating techniques discussed Medical recommendations Plan for discharge home today Time with Patient: Less than 30
--- NOTE | 2019-08-04 10:22 | P.DS ---
Providers Date of admission: 08/03/19 06:27 Expected date of discharge: 08/04/19 Attending physician: Shola Mesa Consults: 08/03/19 09:50 Consult Physician Routine Consulting Provider: Martin Ventura Reason/Comments: Medical Management Do you want consulting provider notified?: Yes Primary care physician: Martin Ventura MD Hospital Course: Date of admission: 08/03/2019 Date of discharge: 08/04/1999 Admission diagnosis: Status post right total shoulder arthroplasty Discharge diagnosis: Same Attending physician: Dr. Mesa Surgical procedures: Right total shoulder arthroplasty Brief history: Patient is a 69-year-old female with a history of progressive primary right shoulder osteoarthritis. At this point patient has failed conservative treatment measures and has opted to proceed with a elective right total shoulder arthroplasty. Hospital course: Details of patient's surgery can be found in operative report. Patient tolerated the procedure well and was subsequently transported to orthopedic floor. Patient's orthopeidc and medical care was provided daily. Patient had daily laboratory tests performed for evaluation of overall blood counts. Patient had daily physical therapy to include strengthening range of motion as well as education with walker ambulation. Patient was treated with Lovenox for their postoperative DVT prophylaxis during their inpatient stay. Patient was noted to have a relatively uneventful postoperative course. Patient reported satisfactory pain control with oral pain medications by postoperative day 0. Patient showed satisfactory progress with physical therapy. Patient moved steadily through the program and had no difficulty meeting the goals by postoperative day 1. Given patient's otherwise satisfactory course and having met physical therapy goals, plan is to discharge patient home on postoperative day 1. Discharge condition/disposition: Patient will be discharged home in stable condition. Discharge medications: Instructions are given on resumption of patient's normal daily medications per primary care recommendation, in addition patient will be prescribed . Discharge instructions: 1. Wound care and infection precautions, keep incision dry and covered while showering, no lotions, creams, moisturizers. No soaking, tubs, pools, hottubs. Do not scrub over the incision. 2. Utilize arm sling at all times 3. Ice and elevate when necessary. Do not exceed 20 minutes per hour with ice pack. 4. Utilize compression sleeve until seen at first follow up appointment. 5. Pain meds and anticoagulants per prescription. 6. Pain medication has potential to cause constipation. Increase oral fluid and fiber intake. Contact primary care provider if you have not had a bowel movement within 48 hours after discharge 7. No anti-inflammatory medication until discussed at first post operative visit, this including Motrin, Aleve, Mobic, Diclofenac. 8. Follow up in office at 2 weeks postop with Davi Salazar PA-C 9. Follow up with your primary care doctor 7-10 days after discharge. 10. Contact [facility] with any questions, . Procedures: Right total shoulder arthroplasty Patient Condition at Discharge: Good Plan - Discharge Summary Discharge Rx Participant: No New Discharge Prescriptions: New Aspirin [Adult Low Dose Aspirin EC] 81 mg PO BID #60 tablet. Hydrocodone/Acetaminophen [[employer] 5-325] 1 each PO Q6HR PRN #28 tab PRN Reason: Pain Discontinued Aspirin 81 mg PO HS No Action Cholecalciferol [Vitamin D3 (25 Mcg = 1000 Iu)] 4,000 unit PO SUTUTHSA Cholecalciferol [Vitamin D3 (25 Mcg = 1000 Iu)] 2,000 unit PO MOWEFR traMADol HCL [Ultram] 100 mg PO BID Multivitamins, Thera [Multivitamin (formulary)] 0.5 tab PO BID metFORMIN HCL [Glucophage] 500 mg PO DAILY amLODIPine BESYLATE/BENAZEPRIL [Lotrel 5-20 MG] 1 tab PO DAILY Pravastatin Sodium [Pravachol] 20 mg PO HS Meloxicam 7.5 mg PO DAILY Hydroxychloroquine Sulfate [Plaquenil] 200 mg PO BID Discharge Medication List Cholecalciferol [Vitamin D3 (25 Mcg = 1000 Iu)] 2,000 unit PO MOWEFR 12/26/14 [History] Cholecalciferol [Vitamin D3 (25 Mcg = 1000 Iu)] 4,000 unit PO SUTUTHSA 12/26/14 [History] Multivitamins, Thera [Multivitamin (formulary)] 0.5 tab PO BID 12/26/14 [History] Pravastatin Sodium [Pravachol] 20 mg PO HS 12/26/14 [History] amLODIPine BESYLATE/BENAZEPRIL [Lotrel 5-20 MG] 1 tab PO DAILY 12/26/14 [History] metFORMIN HCL [Glucophage] 500 mg PO DAILY 12/26/14 [History] traMADol HCL [Ultram] 100 mg PO BID 12/26/14 [History] Hydroxychloroquine Sulfate [Plaquenil] 200 mg PO BID 07/27/19 [History] Meloxicam 7.5 mg PO DAILY 07/27/19 [History] Aspirin [Adult Low Dose Aspirin EC] 81 mg PO BID #60 tablet. 08/04/19 [Rx] Hydrocodone/Acetaminophen [[employer] 5-325] 1 each PO Q6HR PRN #28 tab 08/04/19 [Rx] Follow up Appointment(s)/Referral(s): Martin Ventura MD [Primary Care Provider] - 1 Week Mason Salazar PAC [PHYSICIAN NETWORK SPECIALIST] - 08/18/19 3:10 pm Activity/Diet/Wound Care/Special Instructions: Orthopedic Discharge Instructions: 1. Wound care and infection precautions, keep incision dry and covered while showering, no lotions, creams, moisturizers. No soaking, pools, hot tubs. Do not scrub over incision. 2. Utilize arm sling at all times 3. Ice and elevate when necessary. Do not exceed 20 minutes per hour with ice pack. 4. Utilize compression sleeve until seen at first follow up appointment. 5. Pain meds and anticoagulants per prescription. 6. Pain medication has potential to cause constipation. Increase oral fluid and fiber intake. Contact primary care provider if you have not had a bowel movement within 48 hours after discharge. 7. No anti-inflammatory medication until discussed at first post operative visit, this including Motrin, Aleve, Mobic, Diclofenac. 8. Follow up in office at 2 weeks postop with Davi Salazar PA-C 9. Follow up with your primary care doctor 7-10 days after discharge. 10. Contact [facility] with any questions, . Discharge Disposition: HOME SELF-CARE
--- NOTE | 2019-08-04 11:37 | P.CONS ---
History of Present Illness - Reason for Consult Consult date: 08/04/19 Medical management Requesting physician: Shola Mesa - Chief Complaint Shoulder surgery - History of Present Illness Consultation: This is a very pleasant 69-year-old patient of Dr. Martin Ventura. Chronic stable medical conditions include diabetes mellitus type 2, hypertension, hyperlipidemia, coronary artery disease with previous [place], obstructive sleep apnea uses CPAP. Patient has gone right shoulder surgery. Some pain is present. Otherwise doing well. Right arm in a sling. Has been up and out of the bathroom. No nausea vomiting. Pain is controlled. Did tolerate her breakfast. Review of systems: GEN.: None EYES: None HEENT: None NECK: None RESPIRATORY: None CARDIOVASCULAR: None GASTROINTESTINAL: None GENITOURINARY: None MUSCULOSKELETAL: Joint pains LYMPHATICS: None HEMATOLOGICAL: None PSYCHIATRY: None NEUROLOGICAL: None Social history: . Does smoke in the remote past. Retired from [employer]. Physical examination: VITAL SIGNS: 98.2, 77, 12, 11 5/68, 97% on room air GENERAL: BMI 33.8, sitting up in a chair, comfortable. EYES: Pupils equal. Conjunctiva normal. HEENT: External appearance of nose and ears normal, oral cavity grossly normal. NECK: JVD not raised; masses not palpable. HEART: First and second heart sounds are normal; no edema. LUNGS: Respiratory rate normal; clear to auscultation. ABDOMEN: Soft, nontender, liver spleen not palpable, no masses palpable. PSYCH: Alert and oriented x3; mood and affect normal. MUSCULOSKELETAL: Dressing over the right shoulder, right arm wrestling, sensation is good in the fingers NEUROLOGICAL: Cranial nerves grossly intact; no facial asymmetry, power and sensation grossly intact. LYMPHATICS: No lymph nodes palpable in the axilla and neck INVESTIGATIONS, reviewed in the clinical context: White count 8.1 hemoglobin 12.2 platelets 182 Accu-Cheks noted Assessment: Right total shoulder arthroplasty -Diabetes mellitus type 2 -Hyperlipidemia -Essential hypertension -Coronary artery disease with prior history of silent [place] -Primary osteoarthritis -Obstructive sleep apnea uses CPAP machine -Obesity BMI 33.8 Plan: Home medications are to be resumed. Accu-Cheks to be followed. This is clinically doing well. If discharge should follow-up with her family doctor. Thank you Dr. Fontaine Past Medical History Past Medical History: Diabetes Mellitus, Hyperlipidemia, Hypertension, Myocardial Infarction ([place]), Osteoarthritis (OA), Pneumonia, Sleep Apnea/CPAP/BIPAP Additional Past Medical History / Comment(s): USES CPAP Last Myocardial Infarction Date:: UNK-SILENT [place] History of Any Multi-Drug Resistant Organisms: None Reported Past Surgical History: Heart Catheterization, Joint Replacement, Orthopedic Surgery, Tonsillectomy Additional Past Surgical History / Comment(s): TOTAL RT KNEE, SILVIA FEET SURGERY, CARPEL TUNNEL SILVIA WRIST, LUMP REMOVED LT WRIST, RT HIP ARTHROSCOPY TOTAL RIGHT HIP, TOTAL LEFT SHOULDER, TRS 07/2019 Past Anesthesia/Blood Transfusion Reactions: Postoperative Nausea & Vomiting (PONV) Smoking Status: Former smoker - Past Family History Mother Family Medical History: Coronary Artery Disease (CAD), Hypertension Father Family Medical History: AFIB Additional Family Medical History / Comment(s): SEVERE BACK PROBLEMS Brother(s) Family Medical History: Diabetes Mellitus, Hypertension Additional Family Medical History / Comment(s): TYPE 1 DIABETES Medications and Allergies Home Medications Medication Instructions Recorded Confirmed Type Cholecalciferol [Vitamin D3 (25 2,000 unit PO MOWEFR 12/26/14 08/03/19 History Mcg = 1000 Iu)] Cholecalciferol [Vitamin D3 (25 4,000 unit PO SUTUTHSA 12/26/14 07/27/19 History Mcg = 1000 Iu)] Multivitamins, Thera [Multivitamin 0.5 tab PO BID 12/26/14 07/27/19 History (formulary)] Pravastatin Sodium [Pravachol] 20 mg PO HS 12/26/14 08/03/19 History amLODIPine BESYLATE/BENAZEPRIL 1 tab PO DAILY 12/26/14 08/03/19 History [Lotrel 5-20 MG] metFORMIN HCL [Glucophage] 500 mg PO DAILY 12/26/14 08/03/19 History traMADol HCL [Ultram] 100 mg PO BID 12/26/14 08/03/19 History Hydroxychloroquine Sulfate 200 mg PO BID 07/27/19 08/03/19 History [Plaquenil] Meloxicam 7.5 mg PO DAILY 07/27/19 07/27/19 History Aspirin [Adult Low Dose Aspirin EC] 81 mg PO BID #60 tablet. 08/04/19 Rx Hydrocodone/Acetaminophen [Hospers 1 each PO Q6HR PRN #28 tab 08/04/19 Rx 5-325] Allergies Allergy/AdvReac Type Severity Reaction Status Date / Time codeine Allergy Hallucinations Verified 08/03/19 11:06 and nausea nickel Allergy Rash/Hives Verified 08/03/19 11:06 Physical Exam Vitals: Vital Signs Temp Pulse Resp BP Pulse Ox 08/04/19 07:00 98.2 F 77 12 115/68 97 08/04/19 00:59 98.3 F 89 18 118/78 93 L 08/03/19 20:08 98.4 F 77 18 107/70 93 L 08/03/19 20:00 73 19 08/03/19 15:00 98 F 87 12 119/64 94 L 08/03/19 13:00 93 105/84 08/03/19 12:45 93 102/85 08/03/19 12:30 84 99/73 08/03/19 12:15 87 115/63 08/03/19 12:00 87 117/71 08/03/19 11:45 83 120/64 08/03/19 11:30 79 122/70 08/03/19 11:15 79 117/73 08/03/19 11:00 98 F 83 12 109/67 94 L 08/03/19 10:46 76 16 104/54 95 Intake and Output 08/03/19 08/04/19 08/04/19 22:59 06:59 14:59 Intake Total 100 Balance 100 Intake: Intake, IV Titration 100 Amount Lactated Ringers 1,000 ml 100 @ 0 mls/hr IV .K-MED ONE Rx#:[id number] Other: Voiding Method Toilet Results CBC & Chem 7: 08/04/19 06:10 08/03/19 07:00 Labs: Abnormal Lab Results - Last 24 Hours (Table) 08/03/19 08/03/19 08/03/19 Range/Units 12:19 17:19 20:41 MCHC (31.0-37.0) g/dL POC Glucose (mg/dL) 163 H 152 H 146 H (75-99) mg/dL 08/04/19 08/04/19 Range/Units 06:10 07:03 MCHC 30.7 L (31.0-37.0) g/dL POC Glucose (mg/dL) 140 H (75-99) mg/dL
[2019-08-04 11:54] LABS: Glucose,Whole Blood 103 mg/dL (75-99)
[2019-08-04] MEDS: LACTATED RINGERS 1,000 ML IV SCH (12:16)
[2019-08-04 14:14] LABS: Hemoglobin A1C 6.6 % (4.0-6.0)
== END 2019-08-04 12:37 | disposition home or self-care (01) | DRG 483 ==
LOC: 2ORMAIN 06:27 → 4SSUR 10:13
PROVIDERS: ADMIT Orthopaedic Surgery; ATTEND Orthopaedic Surgery
PROC: 0RRJ0JZ Replacement of Right Shoulder Joint with Synthetic Substitute, Open Approach (ICD-10-PCS; principal; 2019-08-03 08:00)
DX: M19.011 Primary osteoarthritis, right shoulder (principal); E11.9 Type 2 diabetes mellitus without complications; E66.9 Obesity, unspecified; E78.00 Pure hypercholesterolemia, unspecified; E78.5 Hyperlipidemia, unspecified; G47.33 Obstructive sleep apnea (adult) (pediatric); Z99.89 Dependence on other enabling machines and devices; I25.2 Old myocardial infarction; I10 Essential (primary) hypertension; I25.10 Atherosclerotic heart disease of native coronary artery without angina pectoris; Z68.33 Body mass index [BMI] 33.0-33.9, adult; Z79.1 Long term (current) use of non-steroidal anti-inflammatories (NSAID); Z79.82 Long term (current) use of aspirin; Z79.84 Long term (current) use of oral hypoglycemic drugs; Z79.899 Other long term (current) drug therapy; Z82.49 Family history of ischemic heart disease and other diseases of the circulatory system; Z83.3 Family history of diabetes mellitus; Z87.891 Personal history of nicotine dependence; Z96.643 Presence of artificial hip joint, bilateral; Z96.651 Presence of right artificial knee joint; Z96.612 Presence of left artificial shoulder joint
CPT/HCPCS: 64415; 76942; 80053; 83036; 85025; 85027; 88300

== ENCOUNTER → 2020-04-17 | Outpatient (CLI) | payer MEDICARE | END | disposition home or self-care (01) | LOC: LABPAT 11:58 | PROVIDERS: ATTEND Orthopaedic Surgery | DX: Z01.812 Encounter for preprocedural laboratory examination (principal) | CPT/HCPCS: 87070 ==

== ENCOUNTER 2020-05-01 05:44 | Day surgery (SDC) | payer MEDICARE ==
[2020-04-27 13:31] VITALS: BMI 35.4
--- NOTE | 2020-04-30 10:54 | HP ---
HISTORY AND PHYSICAL REASON FOR ADMISSION: Surgery 05/01/2020 Niharika Cruz is a 70-year-old patient seen with symptomatic left knee osteoarthritis. We discussed options for treatment. She elected to proceed left total knee arthroplasty. Consent was obtained. Clearance was provided by Dr. Ramon Ventura. PAST MEDICAL HISTORY: Hypertension, hyperlipidemia, [id number] diabetes. PAST SURGICAL HISTORY: Carpal tunnel release, right total knee arthroplasty, total shoulder arthroplasty, tonsillectomy. DAILY MEDICATIONS: Aspirin, Lotrel, meloxicam, metformin, pravastatin, tramadol. ALLERGIES: CODEINE. SOCIAL HISTORY: She denies tobacco use. PHYSICAL EXAMINATION: Evaluation of the left knee: Range of motion is -2 to 115. Tenderness medial joint line. Crepitus medial patellofemoral compartments range of motion. Pain with patellofemoral compression. Ligaments are stable. Hip rotation without pain. Distal neurovascular exam is intact. RADIOGRAPHS: Radiographs of the left knee revealed severe osteoarthritic changes. IMPRESSION: 1. Left knee osteoarthritis. 2. Hypertension. 3. Hyperlipidemia. PLAN: Left total knee arthroplasty. Surgery is 05/01/2020. MMODL / IJN: [id number] /
[~2020-05-01 05:44] MED LIST changes: -DEXAMETHASONE SOD PHOSPHATE 10 MG/ML 1 ML VIAL IV ONE; -HYDROmorphone 0.5 MG/0.5 ML SYRINGE IVP PRN; -LIDOCAINE 1% 20 ML VIAL (10MG/ML) FOR IV START INTRADERMA PRN; -MIDAZOLAM 2 MG/2 ML VIAL IV PRN; -ONDANSETRON 4 MG/2 ML VIAL IVP ONE; -SCOPOLAMINE 1.5MG/72HR PATCH TRANSDERM ONE
[2020-05-01] MEDS ORDERED: ROPIVACAINE 246.25 MG, EPINEPHrine 0.5 MG, KETOROLAC 30 MG, cloNIDine HCL/PF 80 MCG, WA... MISCELLANE ONE ×5 (06:00)
[2020-05-01] MEDS ORDERED: HYDROmorphone 0.5 MG/0.5 ML SYRINGE IVP PRN ×4 (06:12→09:24)
[2020-05-01] MEDS ORDERED: DEXAMETHASONE SOD PHOSPHATE 10 MG/ML 1 ML VIAL IV ONE (06:12)
[2020-05-01] MEDS ORDERED: ONDANSETRON 4 MG/2 ML VIAL IVP ONE (06:12)
[2020-05-01] MEDS ORDERED: MIDAZOLAM 2 MG/2 ML VIAL IV PRN (06:12)
[2020-05-01 06:43] LABS: Glucose,Whole Blood 171 mg/dL (75-99)
[2020-05-01] MEDS ORDERED: LIDOCAINE 1% (10MG/ML) FOR IV START INTRADERMA ONE (06:44)
[2020-05-01] MEDS: LACTATED RINGERS 1,000 ML IV SCH ×2 (06:44→17:41)
[2020-05-01] MEDS ORDERED: fentaNYL (PF) 50 MCG/ML 2 ML AMP IVP ONE (07:05)
[2020-05-01] MEDS ORDERED: MIDAZOLAM 2 MG/2 ML VIAL IV ONE (07:05)
[2020-05-01] MEDS ORDERED: PHENYLEPHRINE-0.9% NACL SYG 1 MG/10 ML SYRINGE ONE (07:24)
[2020-05-01] MEDS ORDERED: SODIUM CHLORIDE 0.9% 100 ML BAG ONE (07:24)
[2020-05-01] MEDS ORDERED: fentaNYL (PF) 50 MCG/ML 2 ML AMP ONE (07:24)
[2020-05-01] MEDS ORDERED: MIDAZOLAM 2 MG/2 ML VIAL ONE (07:24)
[2020-05-01] MEDS ORDERED: TRANEXAMIC ACID 1,000 MG/10 ML VIAL ONE (07:24)
[2020-05-01] MEDS ORDERED: PROPOFOL 10 MG/ML 20 ML VIAL IV ONE (07:24)
[2020-05-01] MEDS ORDERED: ceFAZolin 1,000 MG in SODIUM CHLORIDE 0.9% 1,000 ML IRRIGATION ONE (08:00)
[2020-05-01 08:06] VITALS: RESP 16
[2020-05-01] MEDS ORDERED: ONDANSETRON 4 MG/2 ML VIAL IVP PRN (09:24)
[2020-05-01] MEDS ORDERED: NALOXONE 0.4 MG/ML 1 ML VIAL IV PRN (09:24)
[2020-05-01] MEDS ORDERED: HYDROcodone/APAP 5-325MG 1 EACH TAB PO PRN (09:24)
--- NOTE | 2020-05-01 09:24 | P.OP ---
Date of Procedure: 05/01/20 Preoperative Diagnosis: Left knee osteoarthritis Postoperative Diagnosis: Left knee osteoarthritis Procedure(s) Performed: Left total knee arthroplasty Implants: 1. Aesculap size 4 narrow cemented femur 2. Aesculap size T3 cemented tibial baseplate 3. Aesculap size 310 mm polyethylene tibial insert 4. Aesculap P4 all polyethylene cemented patella Anesthesia: regional (Adductor canal catheter), local, spinal Surgeon: Brett Garcia Senior Clinical Data Coordinator #1: Mason Salazar Estimated Blood Loss (ml): 50 Pathology: other (Bone) Condition: stable Disposition: PACU Indications for Procedure: 70-year-old patient seen with symptomatic left knee osteoarthritis. After treatment options were discussed with her, he elected to proceed with total knee arthroplasty. The patient does have a history of a nickel ALLERGY. Operative Findings: See description procedure Description of Procedure: Patient was taken to the operative suite after having an adductor canal catheter placed by the department of anesthesia. Patient underwent a spinal anesthetic by the department of anesthesia. Patient was given preoperative IV intake antibiotics and TXA. A well-padded tourniquet was placed about the left lower extremity. The lower extremity was then prepped and draped in the normal sterile orthopedic fashion. The extremity was elevated, a tourniquet was insufflated to 300. A standard anterior incision was made sharply through skin. Dissection was taken down through the subcutaneous soft tissues down to the extensor mechanism. A medial arthrotomy was performed, patella was everted and knee was flexed. There was advanced osteoarthritis noted. I introduced my distal intramedullary femoral drill. I then introduced the distal femoral cutting jig. Davi RUTLEDGE secured the cutting jig with 2 pins. I held retractors in position while Davi RUTLEDGE performed the distal femoral resection through the guide area we now removed her distal femoral cutting guide. We now placed our 4-in-1 femoral cutting block and positioned and it was secured with 2 pins by Davi RUTLEDGE while I held the block in position. The distal femoral finishing was now completed. A proximal tibial cutting guide was positioned. I held the guide in the appropriate position with both hands well Davi RUTLEDGE inserted stabilizing pins into the guide. Proximal tibial cut was made. We now placed a trial femoral component into position, along with an appropriate size tibial tray and insert. We now took the knee through range of motion and had full extension good flexion and good overall soft tissue balance noted. The patella was everted and stabilized with 2 towel clips held by Davi RUTLEDGE while I performed a flush with patellar quad tendon utilizing a fresh sawblade. We templated the patella, appropriate drill holes were made. An appropriate trial patella was positioned, knee was taken through full range of motion with the patella tracking very nicely. The trial patella was removed. Drill holes were made through the femoral component. All trial components were removed after marking off the appropriate rotation of the tibia. Retractors were now positioned along the proximal tibia. An appropriate keel punch was made with the appropriate size tibial guide by myself on Davi RUTLEDGE assisted by holding retractors. At this point appropriate size implants were chosen and opened. The implants were nickel free as patient has a history of nickel ALLERGY. The joint was irrigated copiously with pulse lavage mechanical irrigation. The posterior capsule was infiltrated with local analgesic. The wound was irrigated with pulse lavage mechanical irrigation. We mixed antibiotic methylmethacrylate. We placed the knee into flexion. We placed multiple retractors assisted by Davi RUTLEDGE to expose the proximal tibia. Once the methyl methacrylate was ready, the tibial component was cemented into place removing any excess methylmethacrylate form by both myself and Davi RUTLEDGE. The femoral component was cemented into place removing the removing any excess methylmethacrylate performed by both myself and Davi RUTLEDGE. We then inserted the appropriate size polyethylene tibial insert. We made sure that it was locked into position. We took the knee into full extension, and then back in a flexion making sure we had removed any excess methylmethacrylate. The patellar component was then cemented down and secured with clamp. Excess methylmethacrylate removed. We kept the knee in full extension, patellar clamp in position until methylmethacrylate had hardened. Once it had hardened the patellar clamp was removed. The knee was taken through full range of motion. The patella tracked nicely. There was good soft tissue balancing. The tourniq uet was now released. Additional hemostasis was achieved via electrocautery. A second gram of TXA was given. The wound again was irrigated with pulse lavage mechanical irrigation. The superficial soft tissues were infiltrated local analgesic. The extensor mechanism was repaired with Vicryl. We checked the repair with range of motion and it was stable. The subcutaneous soft tissues were repaired with Vicryl in layers. The skin was approximated with pernio/Dermabond. Sterile dressings were applied followed by loose web roll and Ceasar bandage. The patient was transferred to a bed, and taken to recovery in stable and satisfactory condition. Davi RUTLEDGE assisted with this complex procedure.
[2020-05-01] MEDS ORDERED: ROPIVACAINE 0.2%-NS ON-Q PUMP 1,090 MG, EMPTY PAIN BALL 1 EACH MISCELLANE PRN (09:41)
[2020-05-01] MEDS ORDERED: LACTATED RINGERS 1,000 ML IV ONE ×2 (10:05)
--- NOTE | 2020-05-01 10:16 | XR ---
Left knee HISTORY: Status post left knee arthroplasty 2 views of the left knee Patient is status post left knee arthroplasty. There is anatomic alignment. Surgical atiya are pres ent. Lucency is present in the soft tissues. Hypertrophic change suspected in the posterior aspect of the distal femur at the posterior aspect of the left lateral femoral condyle, superimposed posterior ly on the lateral exam. IMPRESSION: Orthopedic follow-up as described.
--- NOTE | 2020-05-01 10:32 | P.ANPRN ---
Procedure Note - Anesthesia - Nerve Block Performed Left Adductor Canal Infusion Time Out Performed: Yes (704) Date of Procedure: 05/01/20 Procedure Start Time: 07:05 Procedure Stop Time: 07:11 Location of Patient: PreOp Indication: Acute Post-Operative Pain, Requested by Surgeon Specifically requested for management of pain by DrSondra: Brett Garcia Sedation Type: Sedate with meaningful contact maintained Preparation: Sterile Prep Position: Supine Catheter Depth at Skin (cm): 10 Catheter: None Needle Types: Pajunk Needle Gauge: 21 Ultrasound used to visualize needle placement: Yes Ultrasound used to observe medication spread: Yes Injectate: 0.5% Ropivacaine (see comment for volume) (20cc) Blood Aspirated: No Pain Paresthesia on Injection Noted: No Resistance on Injection: Normal Image Stored and Saved: Yes Events: Uneventful and Well Tolerated
[2020-05-01 10:34] LABS: Glucose,Whole Blood 174 mg/dL (75-99)
[2020-05-01] MEDS ORDERED: CHOLECALCIFEROL 1,000 UNIT TAB PO SCH (12:00)
[2020-05-01 12:02] LABS: Glucose,Whole Blood 175 mg/dL (75-99)
[2020-05-01 16:50] LABS: Glucose,Whole Blood 212 mg/dL (75-99)
[2020-05-01] MEDS: INSULIN ASPART (NovoLOG) 100 UNIT/ML VIAL SQ SCH ×2 (17:41→20:56)
--- NOTE | 2020-05-01 19:48 | P.CONS ---
History of Present Illness - Reason for Consult Consult date: 05/01/20 Medical management Requesting physician: Brett Garcia - Chief Complaint Left knee surgery 3 - History of Present Illness Consultation: This is a pleasant 70-year-old patient of Dr. Martin Ventura. Chronic stable medical conditions include diabetes, hypertension, hyperlipidemia, coronary artery disease with prior ID, osteoarthritis, obstructive sleep apnea uses CPAP. Has undergone left total knee arthroplasty. Pain is controlled. No nausea vomiting. Sitting up in bed. Review of systems: GEN.: None EYES: None HEENT: None NECK: None RESPIRATORY: None CARDIOVASCULAR: None GASTROINTESTINAL: None GENITOURINARY: None MUSCULOSKELETAL: Joint pains LYMPHATICS: None HEMATOLOGICAL: None PSYCHIATRY: None NEUROLOGICAL: None Past medical history to include: Diabetes mellitus type 2, hypertension, hyperlipidemia, myocardial infarction, osteoarthritis, on study sleep apnea uses CPAP, Social history: Patient started smoking at age of 16 quit in 1978. Smoked one to 3 packs per day. Drinks one or 2 glasses of wine per day. Lives with her . Physical examination: VITAL SIGNS: 97.8, 80, 16, 103/52, 96% on room air GENERAL: BMI 34.6, sitting on bed, comfortable. EYES: Pupils equal. Conjunctiva normal. HEENT: External appearance of nose and ears normal, oral cavity grossly normal. NECK: JVD not raised; masses not palpable. HEART: First and second heart sounds are normal; no edema. LUNGS: Respiratory rate normal; clear to auscultation. ABDOMEN: Soft, nontender, liver spleen not palpable, no masses palpable. PSYCH: Alert and oriented x3; mood and affect normal. MUSCULAR skeletal: Dressing over the left knee, evidence of OA in the hands NEUROLOGICAL: Cranial nerves grossly intact; no facial asymmetry, power and sensation grossly intact. LYMPHATICS: No lymph nodes palpable in the axilla and neck Investigations: Accu-Cheks 171 Assessment: -Left total knee arthroplasty -Diabetes mellitus type 2 on oral hypoglycemic -Hyperlipidemia -Essential hypertension -Coronary artery disease prior history of ID -Primary osteoarthritis -Obstructive sleep apnea uses CPAP -Obesity BMI 34.6 Plan: Patient is on Lovenox for DVT prophylaxis per Dr. Juarez. Home medications resumed. Accu-Cheks are being followed. Care was discussed with the patient. Questions answered. Thank you Dr. Juarez Past Medical History Past Medical History: Diabetes Mellitus, Hyperlipidemia, Hypertension, Myocardial Infarction ([place]), Osteoarthritis ([place]), Pneumonia, Sleep Apnea/CPAP/BIPAP Additional Past Medical History / Comment(s): USES CPAP Last Myocardial Infarction Date:: UNK History of Any Multi-Drug Resistant Organisms: None Reported Past Surgical History: Heart Catheterization, Joint Replacement, Orthopedic Surgery, Tonsillectomy Additional Past Surgical History / Comment(s): TOTAL RT KNEE, SILVIA FEET SURGERY, CARPEL TUNNEL SILVIA WRIST, LUMP REMOVED LT WRIST, RT HIP ARTHROSCOPY, TOTAL RIGHT HIP, TOTAL LEFT SHOULDER, TOTAL RIGHT SHOULDER Past Anesthesia/Blood Transfusion Reactions: Postoperative Nausea & Vomiting (PONV) Smoking Status: Former smoker - Past Family History Mother Family Medical History: No Reported History, Coronary Artery Disease (CAD), Hypertension Father Family Medical History: AFIB Additional Family Medical History / Comment(s): SEVERE BACK PROBLEMS Brother(s) Family Medical History: Diabetes Mellitus, Hypertension Additional Family Medical History / Comment(s): TYPE 1 DIABETES Medications and Allergies Home Medications Medication Instructions Recorded Confirmed Type Cholecalciferol [Vitamin D3 (25 2,000 unit PO MOWEFR 12/26/14 05/01/20 History Mcg = 1000 Iu)] Cholecalciferol [Vitamin D3 (25 4,000 unit PO SUTUTHSA 12/26/14 05/01/20 History Mcg = 1000 Iu)] Multivitamins, Thera [Multivitamin 0.5 tab PO BID 12/26/14 05/01/20 History (formulary)] Pravastatin Sodium [Pravachol] 20 mg PO HS 12/26/14 05/01/20 History amLODIPine BESYLATE/BENAZEPRIL 1 tab PO DAILY 12/26/14 05/01/20 History [Lotrel 5-20 MG] metFORMIN HCL [Glucophage] 500 mg PO DAILY 12/26/14 05/01/20 History Meloxicam 7.5 mg PO DAILY 07/27/19 05/01/20 History Aspirin [Adult Low Dose Aspirin EC] 81 mg PO BID #60 tablet. 08/04/19 05/01/20 Rx traMADol HCL [Ultram] 100 mg PO BID 04/27/20 05/01/20 History Allergies Allergy/AdvReac Type Severity Reaction Status Date / Time codeine Allergy Hallucinations Verified 05/01/20 06:13 and nausea nickel Allergy Rash/Hives Verified 05/01/20 06:13 Physical Exam Vitals: Vital Signs Temp Pulse Resp BP Pulse Ox 05/01/20 10:24 71 16 110/58 94 L 05/01/20 10:09 74 16 112/57 92 L 05/01/20 09:54 76 16 100/61 95 05/01/20 09:39 98.7 F 80 16 103/52 96 05/01/20 07:15 85 16 123/69 98 05/01/20 06:16 97.6 F 95 131/69 96 Intake and Output 04/30/20 05/01/20 05/01/20 22:59 06:59 14:59 Intake Total 200 1051 Output Total 50 Balance 200 1001 Intake: IV 200 1051 Output: Estimated Blood Loss 50 Other: Weight 106.2 kg Results Labs: Abnormal Lab Results - Last 24 Hours (Table) 05/01/20 05/01/20 Range/Units 06:42 10:31 POC Glucose (mg/dL) 171 H 174 H (75-99) mg/dL
[2020-05-01 20:44] LABS: Glucose,Whole Blood 182 mg/dL (75-99)
[2020-05-01] MEDS: HYDROcodone/APAP 5-325MG 1 EACH TAB PO PRN (20:55)
[2020-05-01] MEDS ORDERED: SENNOSIDES-DOCUSATE SODIUM 1 EACH TAB PO SCH (21:00)
[2020-05-01] MEDS ORDERED: PRAVASTATIN SODIUM 20 MG TAB PO SCH (21:00)
[2020-05-01] MEDS: ENOXAPARIN 30 MG/0.3 ML SYRINGE SQ SCH (22:02)
[2020-05-02] MEDS: LACTATED RINGERS 1,000 ML IV SCH ×4 (01:47→13:03)
[2020-05-02] MEDS: HYDROcodone/APAP 5-325MG 1 EACH TAB PO PRN ×2 (03:49→10:46)
[2020-05-02 06:52] LABS: Glucose,Whole Blood 146 mg/dL (75-99)
[2020-05-02 06:54] LABS: Basophils % (A) 0 %; Eosinophils % (A) 0 %; HCT 36.7 % (34.0-46.0); HGB 11.9 gm/dL (11.4-16.0); Lymphocytes # (A) 1.4 k/uL (1.0-4.8); Lymphocytes % (A) 15 %; MCH 32.3 pg (25.0-35.0); MCHC 32.5 g/dL (31.0-37.0); MCV 99.2 fL (80.0-100.0); Mean Platelet Volume 7.5; Monocytes # (A) 0.6 k/uL (0-1.0); Monocytes % (A) 7 %; Neutrophils # (A) 7.1 k/uL (1.3-7.7); Neutrophils % (A) 76 %; Platelet Count 173 k/uL (150-450); RDW 12.4 % (11.5-15.5); WBC 9.3 k/uL (3.8-10.6)
[2020-05-02 07:17] VITALS: BP 124/78; PULSE 82; TEMP 98.8
[2020-05-02] MEDS: INSULIN ASPART (NovoLOG) 100 UNIT/ML VIAL SQ SCH ×2 (07:24→13:02)
[2020-05-02] MEDS: ENOXAPARIN 30 MG/0.3 ML SYRINGE SQ SCH (07:25)
--- NOTE | 2020-05-02 08:23 | P.PN ---
Progress Note - Text The patient is status post[left] adductor canal catheter placement. The catheter was placed for postoperative pain control, status post total [left ] arthroplasty. Ropivacaine 0.2% is infusing at[ 8] mLs per hour. The patient has no complaints of[ left] lower extremity numbness or weakness. Patient's VAS score is[45 ]-10. Assessment: Patient's adductor canal catheter is in place and working appropriately. Plan: continue infusion and adjust it as needed.
[2020-05-02] MEDS ORDERED: amLODIPine 5 MG TAB PO SCH (09:00)
[2020-05-02] MEDS ORDERED: MELOXICAM 7.5 MG TAB PO SCH (09:00)
[2020-05-02] MEDS ORDERED: NON FORMULARY DRUG (Amlodipine Besylate/Benazepril [Lotrel 5-20 Mg] 1 EACH Capsule) PO SCH (09:00)
[2020-05-02] MEDS ORDERED: metFORMIN 500 MG TAB PO SCH (09:00)
[2020-05-02] MEDS ORDERED: lisinopriL 20 MG TAB PO SCH (09:00)
[2020-05-02] MEDS ORDERED: MULTIVITAMINS, THERA 1 EACH TAB PO SCH (09:00)
--- NOTE | 2020-05-02 09:59 | P.PN ---
Subjective Progress Note Date: 05/02/20 Principal diagnosis: Status post left total knee arthroplasty patient evaluated at bedside, she is resting comfortably. She's ambulated well with therapy. She has no increase in pain. She denies any headaches, lightheadedness, chest pain, shortness of breath, fever or chills. Objective - Vital Signs Vital signs: Vital Signs Temp 98.8 F 05/02/20 07:16 Pulse 82 05/02/20 07:16 Resp 16 05/02/20 08:15 BP 124/78 05/02/20 07:16 Pulse Ox 96 05/02/20 07:16 Intake & Output 05/01/20 05/02/20 05/02/20 18:59 06:59 18:59 Intake Total 1643 180 Output Total 50 Balance 1593 180 Weight 106.2 kg Intake: IV 1051 Oral 592 180 Output: Estimated Blood Loss 50 Other: Voiding Method Toilet # Voids 1 1 - Exam Left lower extremity: Incision is clean, dry, and intact. The foam dressing is in good condition. There is minimal soft tissue swelling and ecchymosis surrounding the medial and lateral aspects of the incision. Calf is soft, no tenderness with palpation. Plantar flexion, dorsiflexion, EHL, FHL are intact. Sensory exam to light touch throughout the extremity is intact, dorsal pedis pulses 2+. - Labs CBC & Chem 7: 05/02/20 06:34 Labs: Abnormal Lab Results - Last 24 Hours (Table) 05/01/20 05/01/20 05/01/20 Range/Units 10:31 12:01 16:49 RBC (3.80-5.40) m/uL POC Glucose (mg/dL) 174 H 175 H 212 H (75-99) mg/dL 05/01/20 05/02/20 05/02/20 Range/Units 20:42 06:34 06:50 RBC 3.70 L (3.80-5.40) m/uL POC Glucose (mg/dL) 182 H 146 H (75-99) mg/dL Assessment and Plan Assessment: status post left total knee arthroplasty Plan: Pain control, plan for discharge home on oral medication DVT prophylaxis, aspirin 81 mg twice a day Wound care instructions were discussed Icing and elevating techniques discussed Home physical therapy and nursing after discharge Medical recommendations Plan for discharge home today Time with Patient: Less than 30
--- NOTE | 2020-05-02 10:01 | P.DS ---
Providers Date of admission: 05/01/2020 Expected date of discharge: 05/02/20 Attending physician: Brett Garcia Consults: 05/01/20 09:24 Consult Physician Routine Consulting Provider: Rick Marin Consult Reason/Comments: Medical management Do you want consulting provider notified?: Yes Primary care physician: Martin Ventura MD Hospital Course: Date of admission: 05/01/2020 Date of discharge: 05/02/2020 Admission diagnosis: Status post left total knee arthroplasty Discharge diagnosis: Same Attending physician: Dr. Garcia Surgical procedures: Left total knee arthroplasty Brief history: Patient is a 70-year-old female with a history of progressive primary left knee osteoarthritis. At this point patient has failed conservative treatment measures and has opted to proceed with a elective left total knee arthroplasty. Hospital course: Details of patient's surgery can be found in operative report. Patient tolerated the procedure well and was subsequently transported to orthopedic floor. Patient's orthopeidc and medical care was provided daily. Patient had daily laboratory tests performed for evaluation of overall blood counts. Patient had daily physical therapy to include strengthening range of motion as well as education with walker ambulation. Patient was treated with Lovenox for their postoperative DVT prophylaxis during their inpatient stay. Patient was noted to have a relatively uneventful postoperative course. Patient reported satisfactory pain control with oral pain medications by postoperative day 0. Patient showed satisfactory progress with physical therapy. Patient moved steadily through the program and had no difficulty meeting the goals by postoperative day 1. Given patient's otherwise satisfactory course and having met physical therapy goals, plan is to discharge patient home on postoperative day 1. Discharge condition/disposition: Patient will be discharged home in stable condition. Discharge medications: Instructions are given on resumption of patient's normal daily medications per primary care recommendation, in addition patient will be prescribed [place] 7.5 mg/325 mg. Discharge instructions: 1. Wound care and infection precautions, keep incision dry and covered while showering, no lotions, creams, moisturizers. No soaking, tubs, pools, hottubs. Do not scrub over the incision. 2. Weight-bear as tolerated with walker / cane until follow-up. 3. Ice and elevate when necessary. Do not exceed 20 minutes per hour with ice pack. 4. Utilize compression sleeve until seen at first follow up appointment. 5. Visiting nursing care. 6. Home physical therapy including home CPM. 7. Pain meds and anticoagulants per prescription. 8. Pain medication has potential to cause constipation. Increase oral fluid and fiber intake. Contact primary care provider if you have not had a bowel movement within 48 hours after discharge 9. No anti-inflammatory medication until discussed at first post operative visi t, this including Motrin, Aleve, Mobic, Diclofenac 10. Follow up in office at 2 weeks postop with Davi Salazar PA-C 11. Follow up with your primary care doctor 7-10 days after discharge. 12. Contact [facility] with any questions, . Procedures: Left total knee arthroplasty Patient Condition at Discharge: Good Plan - Discharge Summary Discharge Rx Participant: No New Discharge Prescriptions: New Aspirin [Adult Low Dose Aspirin EC] 81 mg PO BID #60 tablet. HYDROcodone/APAP 7.5-325MG [[place] 7.5] 1 - 2 each PO Q6HR PRN #42 tab PRN Reason: Pain Discontinued Aspirin [Adult Low Dose Aspirin EC] 81 mg PO BID #60 tablet.[address] Ferrell Action Cholecalciferol [Vitamin D3 (25 Mcg = 1000 Iu)] 4,000 unit PO SUTUTHSA Cholecalciferol [Vitamin D3 (25 Mcg = 1000 Iu)] 2,000 unit PO MOWEFR Multivitamins, Thera [Multivitamin (formulary)] 0.5 tab PO BID metFORMIN HCL [Glucophage] 500 mg PO DAILY amLODIPine BESYLATE/BENAZEPRIL [Lotrel 5-20 MG] 1 tab PO DAILY Pravastatin Sodium [Pravachol] 20 mg PO HS Meloxicam 7.5 mg PO DAILY traMADol HCL [Ultram] 100 mg PO BID Discharge Medication List Cholecalciferol [Vitamin D3 (25 Mcg = 1000 Iu)] 2,000 unit PO MOWEFR 12/26/14 [History] Cholecalciferol [Vitamin D3 (25 Mcg = 1000 Iu)] 4,000 unit PO SUTUTHSA 12/26/14 [History] Multivitamins, Thera [Multivitamin (formulary)] 0.5 tab PO BID 12/26/14 [History] Pravastatin Sodium [Pravachol] 20 mg PO HS 12/26/14 [History] amLODIPine BESYLATE/BENAZEPRIL [Lotrel 5-20 MG] 1 tab PO DAILY 12/26/14 [History] metFORMIN HCL [Glucophage] 500 mg PO DAILY 12/26/14 [History] Meloxicam 7.5 mg PO DAILY 07/27/19 [History] traMADol HCL [Ultram] 100 mg PO BID 04/27/20 [History] Aspirin [Adult Low Dose Aspirin EC] 81 mg PO BID #60 tablet. 05/02/20 [Rx] HYDROcodone/APAP 7.5-325MG [[place] 7.5] 1 - 2 each PO Q6HR PRN #42 tab 05/02/20 [Rx] Follow up Appointment(s)/Referral(s): Martin Ventura MD [Primary Care Provider] - 1 Week (Office will call you to set up appointment. Thank you.) Mason Salazar PAC [PHYSICIAN PHARMACY TECH] - 2 Weeks Activity/Diet/Wound Care/Special Instructions: Orthopedic Discharge Instructions: 1. Wound care and infection precautions, keep incision dry and covered while showering, no lotions, creams, moisturizers. No soaking, pools, hot tubs. Do not scrub over incision. 2. Weight-bear as tolerated with walker / cane until follow-up. 3. Ice and elevate when necessary. Do not exceed 20 minutes per hour with ice pack. 4. Utilize compression sleeve until seen at first follow up appointment. 5. Pain meds and anticoagulants per prescription. 6. Pain medication has potential to cause constipation. Increase oral fluid and fiber intake. Contact primary care provider if you have not had a bowel movement within 48 hours after discharge. 7. No anti-inflammatory medication until discussed at first post operative visit, this including Motrin, Aleve, Mobic, Diclofenac. 8. Follow up in office at 2 weeks postop with Davi Salazar PA-C 9. Follow up with your primary care doctor 7-10 days after discharge. 10. Contact [facility] with any questions, . Discharge Disposition: HOME WITH HOME HEALTH SERVICES
[2020-05-02 11:31] LABS: Glucose,Whole Blood 154 mg/dL (75-99)
[2020-05-02] MEDS ORDERED: CHOLECALCIFEROL 1,000 UNIT TAB PO SCH (12:00)
--- NOTE | 2020-05-02 23:43 | P.PN ---
Progress Note - Text Progress Note Date: 05/02/20 - Chief Complaint Left knee surgery 3 Consultation: This is a pleasant 70-year-old patient of Dr. Martin Ventura. Chronic stable medical conditions include diabetes, hypertension, hyperlipidemia, coronary artery disease with prior SC, osteoarthritis, obstructive sleep apnea uses CPAP. Has undergone left total knee arthroplasty. Today-doing well. Pain control. No nausea vomiting. Did tolerate a diet. Did work with therapy. Review of systems: Was done for constitutional, cardiovascular, GI, pulmonary. relevant finding as above Current medications reviewed in today's electronic records Physical examination: VITAL SIGNS: 98.8, 82, 16, 124/78, 96% room air GENERAL: Sitting up, comfortable EYES: Pupils equal. Conjunctiva normal. NECK: JVD not raised; masses not palpable. HEART: First and second heart sounds are normal; no edema. LUNGS: Respiratory rate normal; clear to auscultation. ABDOMEN: Soft, nontender, liver spleen not palpable, no masses palpable. PSYCH: Alert and oriented x3; mood and affect normal. MUSCULAR skeletal: Dressing over the left knee, evidence of OA in the hands Investigations: White count 9.3 hemoglobin 11.9 Accu-Cheks 146, 154 Assessment: -Left total knee arthroplasty -Diabetes mellitus type 2 on oral hypoglycemic -Hyperlipidemia -Essential hypertension -Coronary artery disease prior history of SC -Primary osteoarthritis -Obstructive sleep apnea uses CPAP -Obesity BMI 34.6 Plan: Doing well. Continue current medications. Follow with PCP. Thank you Dr. Juarez
== END 2020-05-02 13:07 | disposition home health service (06) ==
LOC: OR 05:44 → 4SSUR 09:21 → OR 05-02 13:07
PROVIDERS: ATTEND Orthopaedic Surgery
DX: M17.12 Unilateral primary osteoarthritis, left knee (principal); I10 Essential (primary) hypertension; E11.9 Type 2 diabetes mellitus without complications; G47.33 Obstructive sleep apnea (adult) (pediatric); E66.9 Obesity, unspecified; I25.2 Old myocardial infarction; I25.10 Atherosclerotic heart disease of native coronary artery without angina pectoris; Z68.34 Body mass index [BMI] 34.0-34.9, adult; Z99.89 Dependence on other enabling machines and devices; Z87.01 Personal history of pneumonia (recurrent); Z90.89 Acquired absence of other organs; Z96.651 Presence of right artificial knee joint; Z96.611 Presence of right artificial shoulder joint; Z96.612 Presence of left artificial shoulder joint; Z96.641 Presence of right artificial hip joint; Z87.891 Personal history of nicotine dependence; Z82.49 Family history of ischemic heart disease and other diseases of the circulatory system; Z83.3 Family history of diabetes mellitus; Z98.890 Other specified postprocedural states; Z79.82 Long term (current) use of aspirin; Z79.84 Long term (current) use of oral hypoglycemic drugs; Z79.899 Other long term (current) drug therapy; Z79.1 Long term (current) use of non-steroidal anti-inflammatories (NSAID); Z88.5 Allergy status to narcotic agent; Z91.09 Other allergy status, other than to drugs and biological substances; E78.2 Mixed hyperlipidemia
CPT/HCPCS: 97116; 97110; 97161; 64448; 76942; 85025; 88300; 73560; 27447; C1776; C1713; J2250; J0171; J1100; J0690 ×2; J2405; J3010; J1885; J1650 ×2; J2795 ×2; J2370; J2704; J0735

== ENCOUNTER → 2022-07-23 | Outpatient (CLI) | payer MEDICARE ==
--- NOTE | 2022-07-23 14:39 | MR ---
EXAMINATION TYPE: MR lumbar spine wo con DATE OF EXAM: 07/23/2022 COMPARISON: NONE HISTORY: Chronic lower back pain, worse on the right. Spondylosis with radiculopathy per order. TECHNIQUE: Multiplanar, multisequence imaging of the lumbar spine is performed without IV contrast. FINDINGS: Sagittal images of the lumbar spine show vertebral body heights to appear satisfactory. Sma ll Schmorl nodes in the superior L2 and L3 endplates is seen. There is exaggerated lumbar lordosis. M ultilevel disc desiccation and disc space narrowing that is fairly moderate to advanced L2-L3 through the L5-S1 levels. Heterogeneous Modic type III endplate changes left L2-L3 level with moderate to se yohana anterior spurring is noted anteriorly. The conus medullaris is normal in position and signal en ding mid L1 level. Small osseous hemangioma involving the L1 vertebra is seen left aspect sagittal im age 7. Small posterior disc herniations efface the anterior thecal sac in the lower thoracic spine on sagittal images. Axial images at T12-L1 level show mild broad disc bulge minimally effacing anterior thecal sac. Axial images at L1-L2 level show mild/moderate broad disc bulge mildly effacing the anterior thecal s ac. Axial images at L2-L3 level show moderate broad disc bulge with right foraminal disc protrusion compo nent effacing anterior thecal sac. There is mild right-sided neural foraminal narrowing inferiorly se en. Axial images at L3-L4 level show oagu-jf-jkonrarx facet arthropathy bilaterally. Axial images at L4-L5 level show moderate broad disc bulge and moderate facet arthropathy and ligamen estella flavum hypertrophy. There is mild effacement of the anterior and the posterior lateral thecal sac . There is mild to moderate bilateral neural foraminal narrowing seen. Axial images at the L5-S1 level show moderate to advanced facet arthropathy bilaterally greater on th e left with some effacement of the left lateral thecal sac axial image 2. There is pigo-fb-dhtatbdd b road disc bulge. There is mild right and moderate to severe left-sided neural foraminal narrowing see n. Paraspinal muscle bulk is preserved. IMPRESSION: Exaggerated lumbar lordosis with multilevel degenerative changes noted as detailed above.
== END | disposition home or self-care (01) ==
LOC: RADMRIMAIN 08:04
PROVIDERS: ATTEND Nurse Practitioner Family
DX: M47.26 Other spondylosis with radiculopathy, lumbar region (principal); M40.56 Lordosis, unspecified, lumbar region; G89.29 Other chronic pain
CPT/HCPCS: 72148

== ENCOUNTER 2022-10-17 07:57 | Day surgery (SDC) | payer MEDICARE ==
[2022-10-15 16:20] VITALS: BMI 34.7
[2022-10-17 08:52] VITALS: RESP 16; TEMP 97.8
[2022-10-17] MEDS ORDERED: LACTATED RINGERS 1,000 ML IV SCH (09:00)
[2022-10-17 09:01] LABS: Glucose,Whole Blood 147 mg/dL (70-110)
[2022-10-17] MEDS ORDERED: MIDAZOLAM 2 MG/2 ML VIAL ONE (09:03)
[2022-10-17] MEDS ORDERED: IOPAMIDOL M200 10 ML VIAL ONE (09:03)
[2022-10-17] MEDS ORDERED: methylPREDNISolone ACETATE 40 MG/ML 1 ML VIAL ONE (09:03)
[2022-10-17] MEDS ORDERED: fentaNYL (PF) 50 MCG/ML 2 ML AMP ONE (09:03)
--- NOTE | 2022-10-17 09:22 | P.PCN ---
Date of Procedure: 10/17/22 Description of Procedure: Procedure: 1. L4-L5 Epidural steroid injection under fluoroscopic guidance , 2. Lumbar epidurogram PREOPERATIVE DIAGNOSIS: Lumbar degenerative disc disease, and Lumbar radiculopathy. POSTOPERATIVE DIAGNOSIS: Lumbar degenerative disc disease, and Lumbar r adiculopathy. SURGEON: Nahum Parr ANESTHESIA: Local with 1% lidocaine, and IV sedation: Versed 1 mg, and fentanyl 50 g Sedation supervision start time: 904 Sedation supervision ended time 920 EBL: None. Specimen removed: None Fluoroscopic image: saved to electronic medical records PROCEDURE INDICATION: The patient had history of Lumbar degenerative disc disease and Lumbar radiculopathy. Failed to conservative therapy. Presented for epidural steroid injection. PROCEDURE DESCRIPTION: The patient was seen and identified in the preoperative area. Risks, benefits, complications, and alternatives were discussed with the patient. The patient agreed to proceed with the procedure and signed the consent. IV was started, and vital signs were stable. Patient was taken to the procedure area, and time out was completed. The patient was placed in the prone position on procedure table and a pillow was placed under the abdomen to reduce lumbar lordosis. The lumbosacral area was prepped and draped in the usual sterile fashion. Critical pause was taken. Vital signs were closely monitored during the procedure. Using anterior-posterior fluoroscopy, the L4-L5 interlaminar space was identified, and skin and deeper tissues were localized with 1% lidocaine. Using anterior-posterior fluoroscopy, lateral fluoroscopy, and rqro-kv-mnkmbufdwr technique, a 20 gauge 3.5 Tuohy epidural needle entered the epidural space. After negative aspiration of CSF and blood with no paresthesias, 2 ml of [id number] contrast dye was injected and an excellent epidurogram was seen. Again after negative aspiration of CSF and blood with no paresthesias, 8 mL of block solution was injected into the epidural space. Block solution contained 40 mg of Depo-Medrol, and 7 mL of preservative-free normal saline. Needle was withdrawn intact, skin was cleansed, and bandages were applied. COMPLICATIONS: None. DISPOSITION / PLANS: The patient was placed in a supine position and transferred to the recovery area in a stable condition for observation. Patient was discharged from the recovery room after meeting discharge criteria. Home discharge instructions given to the patient by the staff. The patient was reexamined prior to discharge. The patient will schedule a follow up in the clinic in 4 weeks.
[2022-10-17] MEDS ORDERED: IV FLUID CONTINUATION 700 ML IV ONE (09:24)
--- NOTE | 2022-10-17 09:48 | FL ---
EXAMINATION TYPE: FL guided pain mgmt statistic DATE OF EXAM: 10/17/2022 HISTORY: Fluoroscopy time 8 seconds of fluoroscopy provided. DAP [id number] IMPRESSION: 1. Fluoroscopy time.
[2022-10-17 09:51] VITALS: BP 107/66; PULSE 79
== END 2022-10-17 09:54 | disposition home or self-care (01) ==
LOC: ORPAIN 07:57
DX: M51.16 Intervertebral disc disorders with radiculopathy, lumbar region (principal); M47.26 Other spondylosis with radiculopathy, lumbar region; E78.00 Pure hypercholesterolemia, unspecified; I25.10 Atherosclerotic heart disease of native coronary artery without angina pectoris; E11.9 Type 2 diabetes mellitus without complications; Z79.899 Other long term (current) drug therapy; Z88.8 Allergy status to other drugs, medicaments and biological substances; Z88.5 Allergy status to narcotic agent; Z96.653 Presence of artificial knee joint, bilateral; Z98.890 Other specified postprocedural states
CPT/HCPCS: 62323; 99152; J2250; J1030; J3010; Q9966

== ENCOUNTER → 2022-11-04 | Outpatient (CLI) | payer MEDICARE ==
[2022-11-04 10:51] VITALS: BP 154/92; PULSE 96; RESP 18; TEMP 97.7
--- NOTE | 2022-11-04 15:26 | P.PAINPG ---
PQRS Measure Charge Sheet Comment: A 72 yr old female with a history of severe and chronic LBP x yrs secondary to lumbar DDD and spondylosis with facet arthropathy without myelopathy presents today for evaluation s/p FANTASMA L4-L5 #$1. Pt states she experienced 90 % pain relief x 3 wks s/p procedure. Pain level is provoked at 2/10 in intensity, constant, localized in the lumbar spine, achy in character w shooting towards BLEs occasionally. Pain is provoked by climbing stairs. Pain is alleviated with injections, PT x 6 wks w last session in Mar 2022, ice, meds, repositioning and rest. Interventional pain procedures completed include FANTASMA L4-L5 x1 Patient is currently on Tramadol, Mobic Patient denies any side effects of the medication(s), denies excessive drowsiness or sleepiness, denies suicidal ideation and reports that the current pain medication is helping to control the pain and improve activities of daily living. Patient denies any motor or sensory deficits. Patient denies any fever or night sweats, denies any change in the bowel movements or urination. Physical Examination: -Constitutional: Cooperative. Not in acute distress . - Neurologic: Cranial nerve II to XII intact. No focal neurological deficits. - Psychatric: Alert & oriented x 3. Matching mood & appropriate affect. Judgment and insight intact. - Musculoskeletal: Cervical spine: Muscle bulk/ tone/ strength in the bilateral upper extremities normal Vertebral body tenderness to palpation over Spurling test positive Distraction test positive Facet loading test positive TTP Thoracic spine Muscle bulk / tone/ strength in the bilateral paraspinal muscles normal Vertebral body tender to palpation over Facet loading test positive TTP Lumbar spine: Motor bulk/ tone/ strength lower extremities , thigh and legs : 5/5 Deep tendon reflexes : Normal Knee Jerk. Normal Ankle Jerk . Vertebral body tenderness to palpation over Lumbar Facet Loading Test positive Straight Leg Raise: positive at 30 degrees right side/ left side Gaenslen's Test positive Sacral spine : Severe tenderness over the Sacroiliac joint: right side / left side Range of motion: Flexion of the lumbar spine <60 degrees Range of motion: Extension of the lumbar spine <20 degrees Gaenslen's Test positive right side / left side Yue test: positive right side / left side Thigh Thrust Test positive right side / left side Sacral Thrust Test positive right side / left side Assessment and plan: Chronic LBP secondary to lumbar DDD, spondylosis with facet arthropathy without myelopathy Pt exhibited sufficient and substantial pain relief s/p procedure. May return to clinic as needed. All questions answered. I have spent less than 30 minutes on patient care today. Dr Spence was available by phone for the evaluation of this patient. The time was used to review the medical records including relevant urine studies and Prescription history (MAPs), review of the available imaging, evaluation and examination of the patient, coordination of care with the medical staff and if applicable referring physicians, as well as creation of the medical record PQRS Narrative: Smoking Status Former smoker Hx Alcohol Use (MH) Yes: 2 GLASSES OF WINE PER NIGHT Home Medications: Ambulatory Orders Cholecalciferol [Vitamin D3 (25 Mcg = 1000 Iu)] 2,000 unit PO MOWEFR 12/26/14 Cholecalciferol [Vitamin D3 (25 Mcg = 1000 Iu)] 4,000 unit PO SUTUTHSA 12/26/14 Multivitamins, Thera [Multivitamin (formulary)] 1 tab PO DAILY 12/26/14 Pravastatin Sodium [Pravachol] 20 mg PO HS 12/26/14 amLODIPine BESYLATE/BENAZEPRIL [Lotrel 5-20 MG] 1 tab PO DAILY 12/26/14 metFORMIN HCL [Glucophage] 500 mg PO DAILY 12/26/14 Aspirin [Adult Low Dose Aspirin EC] 81 mg PO BID #60 tablet. 05/02/20 traMADol HCL 100 mg PO BID 09/16/22 Alpha Lipoic Acid 600 mg PO DAILY 10/15/22 Meloxicam 7.5 mg PO BID PRN 10/15/22 tiZANidine [Zanaflex] 4 mg PO HS 10/15/22 Controlled Substance Measures - Controlled Substance Measures Is patient prescribed a controlled substance at discharge?: No
== END ==
LOC: PNWHC3 08:21
PROVIDERS: ATTEND Specialist
DX: M51.36 Other intervertebral disc degeneration, lumbar region (principal); G89.29 Other chronic pain; M47.816 Spondylosis without myelopathy or radiculopathy, lumbar region; Z79.82 Long term (current) use of aspirin; Z87.891 Personal history of nicotine dependence; Z91.048 Other nonmedicinal substance allergy status; Z88.5 Allergy status to narcotic agent
CPT/HCPCS: 99211